=== PATIENT | male | born 1970 | race Caucasian/White ===

== ENCOUNTER → 2017-01-06 | Outpatient (CLI) | payer BC | LOC: M LAB 18:36 | PROVIDERS: ATTEND Internal Medicine Gastroenterology | DX: R94.5 Abnormal results of liver function studies (principal); R53.83 Other fatigue ==

== ENCOUNTER → 2017-03-08 | Outpatient (REF) | payer BC | LOC: M LAB REF 12:46 | PROVIDERS: ATTEND Physician Assistant Medical | DX: J02.9 Acute pharyngitis, unspecified (principal) ==

== ENCOUNTER → 2017-03-31 | Outpatient (REF) | payer BC | LOC: M LAB REF 12:38 | PROVIDERS: ATTEND Nurse Practitioner Family | DX: R42 Dizziness and giddiness (principal) ==

== ENCOUNTER → 2017-04-22 | Outpatient (REF) | payer BC ==
[2017-04-25 00:06] LABS: Lyme Disease IgG/IgM Antibodie <0.91 ISR (0.00-0.90); Lyme Disease IgM Ab Quantitati <0.80 index (0.00-0.79)
== END ==
LOC: M LAB REF 17:14
PROVIDERS: ATTEND Nurse Practitioner Family
DX: R42 Dizziness and giddiness (principal)

== ENCOUNTER → 2017-04-29 | Outpatient (REF) | payer BC | LOC: M LAB REF 16:24 | PROVIDERS: ATTEND Family Medicine | DX: R74.8 Abnormal levels of other serum enzymes (principal) ==

== ENCOUNTER → 2017-08-20 | Outpatient (REF) | payer BC ==
[2017-08-20 14:26] LABS: VITAMIN B12 LEVEL 504 PG/ML (247-911)
[2017-08-20 14:27] LABS: FOLATE 18.5 NG/ML (>5.4)
[2017-08-24 00:06] LABS: Lyme Disease IgG/IgM Antibodie <0.91 ISR (0.00-0.90); Lyme Disease IgM Ab Quantitati <0.80 index (0.00-0.79); VITAMIN E LEVEL 15.1 mg/L (5.3-17.5)
== END ==
LOC: M LABNEURO 09:14
PROVIDERS: ATTEND Psychiatry & Neurology Neurology
DX: R42 Dizziness and giddiness (principal)

== ENCOUNTER → 2017-10-23 | Outpatient (CLI) | payer BC | LOC: M LAB 08:20 | PROVIDERS: ATTEND Family Medicine | DX: R42 Dizziness and giddiness (principal) ==

== ENCOUNTER → 2017-10-23 | Outpatient (CLI) | payer BC | LOC: M LAB 19:47 | PROVIDERS: ATTEND Family Medicine | DX: R42 Dizziness and giddiness (principal) ==

== ENCOUNTER → 2017-11-12 | Outpatient (REF) | payer BC | LOC: M LABNEURO 16:52 | PROVIDERS: ATTEND Psychiatry & Neurology Neurology | DX: R53.83 Other fatigue (principal) ==

== ENCOUNTER → 2018-01-15 | Outpatient (REF) | payer BC ==
[2018-01-15 13:07] LABS: HEMATOCRIT 48.8 % (42.0-52.0)
[2018-01-15 14:04] LABS: PROSTATIC SPECIFIC AG MONITOR 0.31 NG/ML (< 4.0)
[2018-01-15 14:21] LABS: TESTOSTERONE 412 NG/DL (241-827)
== END ==
LOC: M LABNEURO 10:15
DX: E29.1 Testicular hypofunction (principal)
CPT/HCPCS: 84403

== ENCOUNTER → 2018-01-19 | Outpatient (REF) | payer BC ==
[2018-01-19 18:01] LABS: TESTOSTERONE 881 NG/DL (241-827)
== END ==
LOC: M LABNEURO 14:25
DX: E29.1 Testicular hypofunction (principal)

== ENCOUNTER → 2018-01-27 | Outpatient (CLI) | payer BC | LOC: M SLEEP 19:48 | DX: R53.83 Other fatigue (principal); G47.10 Hypersomnia, unspecified | CPT/HCPCS: 95810 ==

== ENCOUNTER → 2018-06-12 | Outpatient (REF) | payer BC ==
[2018-06-12 14:44] LABS: HEMATOCRIT 48.6 % (42.0-52.0)
[2018-06-12 15:18] LABS: PSA SCREENING 0.35 NG/ML (< 4.0)
[2018-06-12 15:22] LABS: TESTOSTERONE 606 NG/DL (241-827)
== END ==
LOC: M LABDRAW1 12:40
DX: E29.1 Testicular hypofunction (principal)
CPT/HCPCS: 84403

== ENCOUNTER → 2018-06-17 | Outpatient (REF) | payer BC ==
[2018-06-17 19:56] LABS: TESTOSTERONE 604 NG/DL (241-827)
== END ==
LOC: M LABNEURO 13:55
DX: E29.1 Testicular hypofunction (principal)

== ENCOUNTER 2019-01-31 12:34 | Emergency (ER) | payer BC ==
[~2019-01-31] VITALS: Ht 167.6 cm; Wt 81.8 kg
[2019-01-31] MEDS ORDERED: PAXI20TA29 PO (12:50)
[2019-01-31] MEDS ORDERED: DRIS50003 PO (12:50)
[2019-01-31] MEDS ORDERED: RITA10TA PO (12:50)
[2019-01-31] MEDS ORDERED: [UNRECOGNIZED DRUG - CODE] XX (12:50)
[2019-01-31] MEDS ORDERED: TEST200I14 IM (12:50)
[2019-01-31] MEDS ORDERED: GI COCKTAIL 50ML BTL(HYOSCYAMINE/MAALOX/LIDOCAINE VISCOUS)(1:3:1) PO ONE (13:15)
--- NOTE | 2019-01-31 13:19 | REP ---
Clinical: chest pain. Comparison: none. Findings: The mediastinum and cardiac silhouette are stable and within normal limits for portable technique. The lung sky are clear without acute consolidation, effusion, or pneumothorax. Skeletal structures are intact. Impression: No acute cardiopulmonary process appreciated. Electronically Signed by Rashard Luciano MD 01/31/2019 01:10 P
[2019-01-31 13:23] LABS: BASO # 0.1 10^3/uL (0.0-0.2); BASO % 0.8 % (0.0-1.0); EOS # 0.2 10^3/uL (0.0-0.50); EOS % 2.5 % (0.0-3.0); HEMATOCRIT 48.3 % (42.0-52.0); HEMOGLOBIN 16.6 g/dl (13.5-17.5); LYMPH # 1.4 10^3/uL (1.5-4.5); LYMPH % 22.7 % (24.0-44.0); MEAN CORPUSCULAR HEMOGLOBIN 29.8 pg (27.0-33.0); MEAN CORPUSCULAR HGB CONC 34.4 g/dl (32.0-36.5); MEAN CORPUSCULAR VOLUME 86.7 fl (80.0-96.0); MONO # 0.5 10^3/uL (0.0-0.8); MONO % 7.7 % (0.0-5.0); NEUTROPHILS # 4.2 10^3/uL (1.8-7.7); NEUTROPHILS % 66.1 % (36.0-66.0); PLATELET COUNT, AUTOMATED 245 10^3/uL (150-450); RED BLOOD COUNT 5.57 10^6/uL (4.30-6.10); WHITE BLOOD COUNT 6.4 10^3/uL (4.0-10.0)
[2019-01-31 13:38] LABS: INR 0.99; PROTHROMBIN TIME 13.2 SECONDS (12.1-14.4)
[2019-01-31 13:52] LABS: ALBUMIN 3.9 GM/DL (3.2-5.2); ALT/SGPT 40 U/L (12-78); BILIRUBIN,DIRECT 0.1 MG/DL (0.0-0.2); BILIRUBIN,TOTAL 0.5 MG/DL (0.2-1.0); BLOOD UREA NITROGEN 14 MG/DL (7-18); CALCIUM LEVEL 8.8 MG/DL (8.5-10.1); CARBON DIOXIDE LEVEL 28 MEQ/L (21-32); CHLORIDE LEVEL 105 MEQ/L (98-107); CPK CREATINE PHOSPHOKINASE 234 U/L (39-308); CREATININE FOR GFR 1.11 MG/DL (0.70-1.30); FREE T4 0.71 NG/DL (0.76-1.46); GLOMERULAR FILTRATION RATE > 60.0 (>60); GLUCOSE, FASTING 86 MG/DL (70-100); LIPASE 132 U/L (73-393); MB/CK RELATIVE INDEX 0.73 (< OR =4); POTASSIUM SERUM 3.7 MEQ/L (3.5-5.1); SODIUM LEVEL 141 MEQ/L (136-145); TOTAL PROTEIN 6.8 GM/DL (6.4-8.2); TROPONIN I < 0.02 NG/ML (< 0.10)
[2019-01-31 14:15] LABS: NT-PRO BNP 15 PG/ML (<125)
[2019-01-31] MEDS ORDERED: ISOVUE-370 76% 100ML VIAL (Q9967) As Ordered ONE (14:54)
--- NOTE | 2019-01-31 15:23 | REP ---
Clinical: Acute chest pain. Technique: Axial contrast enhanced images from the thoracic inlet to the upper abdomen using 100 ml Isovue 370 intravenous contrast material with coronal and sagittal re-formations. Findings: Satisfactory enhancement of the pulmonary vasculature is achieved and no filling defects are identified to suggest pulmonary embolus. Thoracic aorta is normal caliber without aneurysm or dissection. Heart and pericardium are normal. Bilateral lung sky are well aerated and clear without acute pulmonary parenchymal consolidation or atelectasis. No nodule or mass lesion. No pleural effusion/reaction. No pneumothorax. No adenopathy. Impression: No evidence for pulmonary embolus. No acute pleuroparenchymal or mediastinal process. Electronically Signed by Rashard Luciano MD 01/31/2019 03:15 P
[2019-01-31] MEDS ORDERED: PRIL20TA2 PO (15:43)
[2019-01-31] MEDS ORDERED: SUCR1TA PO (15:43)
[2019-01-31 15:45] VITALS: BP 120/72
[2019-01-31] MEDS ORDERED: KETOROLAC 30 MG/ML VIAL (J1885) IV ONE (15:45)
--- NOTE | 2019-01-31 20:07 | ECGEPIP ---
Stationary ECG Study [facility] - ED Test Date: 2019-01-31 Pat Name: JODIE LANGFORD Department: Room: - Gender: M Appointment Clerk: CT : 1970 Requested By: CORWIN Rogers Order Number: [id number] Reading MD: Darlene Rosario Measurements Intervals Freedom Rate: 84 P: 56 WY: 159 QRS: 11 QRSD: 91 T: 0 QT: 307 QTc: 365 Interpretive Statements SINUS RHYTHM NO PRIOR FOR COMPARISON Electronically Signed On 01-31-2019 20:07:18 EST by Darlene Rosario
== END 2019-01-31 16:01 | disposition home or self-care (01) ==
LOC: M ED 12:34
DX: R07.89 Other chest pain (principal); F33.9 Major depressive disorder, recurrent, unspecified; E29.1 Testicular hypofunction; G47.33 Obstructive sleep apnea (adult) (pediatric); Q60.0 Renal agenesis, unilateral; Z79.899 Other long term (current) drug therapy
CPT/HCPCS: 36415; 71045; 71275; 80048; 80076; 82550; 82553; 83690; 83880; 84439; 84443; 84484; 85025; 85610; 93005; 93041; 94760; 99285; Q9967

== ENCOUNTER 2020-10-23 20:00 | Outpatient (CLI) | payer BC ==
[~2020-10-23 20:00] MED LIST: DRIS50003 PO; PAXI20TA29 PO; PRIL20TA2 PO; RITA10TA PO; SUCR1TA PO; TEST200I14 IM; [UNRECOGNIZED DRUG - CODE] XX
== END 2020-10-24 15:00 ==
LOC: M SLEEP 20:00
PROVIDERS: ATTEND Psychiatry & Neurology Neurology
DX: R40.0 Somnolence (principal)

== ENCOUNTER → 2020-11-05 | Outpatient (CLI) | payer SELFPAY | LOC: M LABSMTC 09:02 | PROVIDERS: ATTEND Pediatrics | DX: Z11.59 Encounter for screening for other viral diseases (principal) ==

== ENCOUNTER → 2021-03-23 | Outpatient (REF) | payer BC | LOC: M LAB REF 16:22 | PROVIDERS: ATTEND Family Medicine | DX: E29.1 Testicular hypofunction (principal); R74.8 Abnormal levels of other serum enzymes; K76.0 Fatty (change of) liver, not elsewhere classified ==

== ENCOUNTER 2021-10-20 12:25 | Emergency (ER) | payer BC ==
[~2021-10-20] VITALS: Ht 167.6 cm; Wt 87.5 kg
--- OUTSIDE RECORDS SUMMARY | 2021-10-20 12:32 | CCD | Continuity of Care Document ---
Author Author Ángel ENGLISH M.D. Organization Unknown Address [address] [address] Phone [phone] Care Team Providers Care Delivery Associate Name Role Phone Liam English MD AUTM [phone] Problems Active Problems Provider Date Essential hypertension Garcia Malone D.O. Onset: Hyperlipidemia Garcia Malone D.O. Onset: 2011 Social History Type Date Description Comments Sex Unknown ETOH Use Occasionally consumes beer Tobacco Use Start: Unknown Patient has never smoked Allergies, Adverse Reactions, Alerts Description No Known Drug Allergies Medications Active Medications SIG Qnty Indications Ordering Provide r Date Ketoconazole 2% Cream apply to effected area topically twice a day (Chest) 30gm Liam carrera M.D. 03/26/20[address] 1 by mouth every day Liam English M.D. 08/31/2020 HM [place]-3-6-9 Fatty Acids Capsul es daily Liam English M.D. 08/31/2020 Drisdol 1.25mg (64467 Ut) Capsules 1 tab weekly and extra dose every other week 18caps Liam English M.D. 08/14/2020 Apap Liam English M.D. 01/01 Multivitamin Adult Tablets 1 by mouth every day Liam English M.D. 07/13/2019 Clonazepam 0.5mg Tablets 1 b. i.d.. Unknown Testosterone Cypionate 100mg/ml So lution 1/2 ml b.i.d Unknown Paxil 20mg Tablets 1 by mo ut every day Unknown Mirtazapine 7.5mg Tablets take one tablet by mouth at bedtime Unknown Propranolol HCL 10mg Tablets 1 by augustine b.i.d. Unknown Immunizations CPT Code Status Date Vaccine Lot # U-Flu Given 08/20/2018 Influenza,Unspecified Q2037 Given 10/28/2016 Fluvirin Virus Vaccine [id number] 01 Q2037 Given 10/12/2015 Fluvirin Virus Vaccine [id number] 01 Vital Signs Date Vital Result Comment 07/31/2021 2:33pm BP Systolic 122 mmHg BP Diastolic 80 mmHg Heart Rate 64 /min Height 66 inches 5'6" Weight 190.00 lb BMI (Body Mass Index) 30.7 kg/m2 03/26/2021 2:15pm BP Systolic 120 mmHg BP Diastolic 70 mmHg Heart Rate 68 /min Height 66 inches 5'6" Weight 195.00 lb BMI (Body Mass Index) 31.5 kg/m2 Results Test Acquired Date Facility Test Result H/L Range Note Laboratory test finding 03/23/2021 [facility] [address] [place] [address] [phone] Testosterone 660 ng/dL Normal 241-827 1 Ammonia 20 uMOL/L Normal <32 Complete Blood Count 03/23/2021 [facility] Mail Caller: [place] [address] [phone] WBC 6.7 x10*3/UL 4.1 - 10.9 RBC 6.11 x10*6/UL 4.20 - 6.30 Hemoglobin 17.5 g/dL 12.0 - 18.0 Hematocrit 52.0 % High 37.0 - 51.0 MCV 85.1 fL 80.0 - 97.0 MCH 28.7 pg 26.0 - 32.0 MCHC 33.7 g/dL 31.0 - 38.0 RDW 13.1 % 11.6 - 13.7 PLT 289 x10*3/UL 140 - 440 MPV 7.4 FL Low 7.8 - 11.0 Lymph % 21.8 % 10.0 - 58.5 Mid % 6.1 % 1.7 - 9.3 Neut % 72.1 % 37.0 - 92.0 Lymph # 1.4 x10*3/UL 0.6 - 4.1 Mid # 0.5 x10*3/UL 0.1 - 0.6 Neut # 4.8 x10*3/UL 2.0 - 7.8 Comprehensive Chem Profile 03/23/2021 [facility] Mail Caller: Dr Damien [place] [id number] [phone] Glucose 100 mg/dL High 74 - 99 2 BUN 12 mg/dL 7 - 18 Creatinine 1.2 mg/dL 0.6 - 1.3 Sodium 138 mEq/L 136 - 145 Potassium 4.7 mEq/L 3.5 - 5.1 Chloride 100 mEq/L 98 - 107 Carbon Dioxide 31 mEq/L 21 - 32 Calcium 9.1 mg/dL 8.5 - 10.1 Alk. Phosphatase 63 mg/dL 46 - 116 Total Bilirubin 0.5 mg/dL 0.2 - 1.0 Ast (Sgot) 24 U/L 15 - 37 Alt (SGPT) 76 U/L 12 - 78 Albumin 4.4 g/dL 3.4 - 5.0 Total Protein 7.3 g/dL 6.4 - 8.2 A/G Ratio 1.52 CALC 1.00 - 1.90 GFR >= 60 mL/min >60 GFR >= 60 mL/min >60 3 Lipid Profile 03/23/2021 [facility] Mail Caller: [place] [address] [phone] Cholesterol 195 mg/dL 131 - 200 Triglycerides 302 mg/dL High 30 - 150 HDL Cholesterol 32 mg/dL Low 35 - 60 LDL (Calculated) 103 CALC 50 - 159 Laboratory test finding 03/23/2021 [facility] Mail Caller: [place] [address] [phone] Thyroid Stimulating Hormone 2.39 uIU/mL 0.3 6 - 3.74 Laboratory test finding 03/23/2021 [facility] Mail Caller: [place] [address] [phone] T4 Free 0.77 ng/dL 0.76 - 1.46 1 NORMAL RANGES ARE FOR ADULT FEMALES (OVER 15 YRS) AND MALES (OVER 19 YRS). FOR PEDIATRIC RANGES PLE ASE CONSULT LITERATURE. 2 100-125 mg/dL PRE-DIABET ES/FASTING >126 mg/dL DIABETES/FASTING 3 CHRONIC KIDNEY DISEASE STAGI NG PER NKF STAGE I & II GFR >= 60 NORMAL TO MILDLY DECREASED STAGE III GFR 30-59 MODERATELY DECREASED STAGE IV GFR 15-29 SEVERELY DECREASED STAGE V GFR <15 VERY LITTLE GFR LEFT ESRD GFR <15 ON BREAKER UP Procedures Date Code Description Status 07/30/2021 18103644 Colonoscopy Completed 03/26/2021 44623 Office/Outpatient Established Mo d MDM 30-39 Min Completed 03/26/2021 72076 EKG/Interpretation & Report Comp leted Medical Devices Description No Information Available Encounters Type Date Location Provider Dx Diagnosis Office Visit 03/26/2021 2:00p [facility] Liam English M.D. E78.5 Hyperlipidemia, unspecified R53.83 Other fatigue E07.9 Disorder of thyroid, unspeci fied F41.9 Anxiety disorder, unspecifie d Q60.0 Renal agenesis, unilateral R21 Rash and other nonspecific s kin eruption E55.9 Vitamin D deficiency, unspec ified G47.33 Obstructive sleep apnea (risa lt) (pediatric) R07.89 Other chest pain Assessments Date Code Description Provider 03/26/2021 E78.5 Hyperlipidemia, unspecified Lupillo English M.D. 03/26/2021 R53.83 Other fatigue Liam English M.D. 03/26/2021 E07.9 Disorder of thyroid, unspecified Liam English M.D. 03/26/2021 F41.9 Anxiety disorder, unspecified Abhijit English M.D. 03/26/2021 Q60.0 Renal agenesis, unilateral Liam English M.D. 03/26/2021 R21 Rash and other nonspecific skin eruption Liam English M.D. 03/26/2021 E55.9 Vitamin D deficiency, unspecifie d Liam English M.D. 03/26/2021 G47.33 Obstructive sleep apnea (adult) (pediatric) Liam English M.D. 03/26/2021 R07.89 Other chest pain Liam English M.D. 03/23/2021 E29.1 Testicular hypofunction Liam English M.D. 03/23/2021 E29.1 Testicular hypofunction Lab [place] 03/23/2021 R74.8 Abnormal levels of other serum e abbe English M.D. 03/23/2021 R74.8 Abnormal levels of other serum e daniloymjames Lab Schedule 03/23/2021 K76.0 Fatty (change of) liver, not els ewhere classified Liam English M.D. 03/23/2021 K76.0 Fatty (change of) liver, not els ewhere classified Lab Schedule 03/23/2021 E78.5 Hyperlipidemia, unspecified Lupillo English M.D. 03/23/2021 E78.5 Hyperlipidemia, unspecified Lab Schedule 03/23/2021 E07.9 Disorder of thyroid, unspecified Liam English M.D. 03/23/2021 E07.9 Disorder of thyroid, unspecified Lab Schedule Plan of Treatment Future Appointment(s):* 12/03/2021 2:30 pm - Liam English M.D. at [facility] Functional Status Description No Information Available Mental Status Description No Information Available Referrals Refer to Dr Reason for Referral Status Appt Date Maday Wahsburn MD BIOMEDICAL EQUIPMENT SUPPORT SPECIALIST CONSULT FOR SCREENING COLONOSCOPY Scheduled 06/07/[address] [place] [address] [place] [address] [phone]
--- OUTSIDE RECORDS SUMMARY | 2021-10-20 12:32 | CCD | Continuity of Care Document ---
Author Author Ángel ENGLISH M.D. Organization Unknown Address [address] [address] Phone [phone] Care Team Providers Care Sandwich Maker Name Role Phone Liam English MD AUTM [phone] Problems Active Problems Provider Date Essential hypertension [...] every day Liam English M.D. 08/31/2020 HM [place]-3-6-9 Fatty Acids Capsul es daily Liam English M.D. 08/31/2020 Drisdol 1.25mg (74654 Ut) Capsules 1 tab weekly and extra [...] Influenza,Unspecified Q2037 Given 10/28/2016 Fluvirin Virus Vaccine 58467 01 Q2037 Given 10/12/2015 Fluvirin Virus Vaccine 13128 01 Vital Signs Date Vital Result Comment [...] H/L Range Note Laboratory test finding 03/23/2021 [facility] [address] [place] [address] [phone] Testosterone 660 ng/dL Normal 241-827 1 Ammonia 20 uMOL/L Normal <32 Complete Blood Count 03/23/2021 [facility] Ui Engineer: [place] [address] [phone] WBC 6.7 x10*3/UL 4.1 - 10.9 RBC [...] 2.0 - 7.8 Comprehensive Chem Profile 03/23/2021 [facility] Ui Engineer: Dr Damien Allen [place] [address] [phone] Glucose 100 mg/dL High 74 - 99 [...] 60 mL/min >60 3 Lipid Profile 03/23/2021 [facility] Ui Engineer: [place] [address] [phone] Cholesterol 195 mg/dL 131 - 200 Triglycerides 302 mg/dL High 30 - 150 HDL Cholesterol 32 mg/dL Low 35 - 60 LDL (Calculated) 103 CALC 50 - 159 Laboratory test finding 03/23/2021 [facility] Ui Engineer: [place] [address] [phone] Thyroid Stimulating Hormone 2.39 uIU/mL 0.3 6 - 3.74 Laboratory test finding 03/23/2021 [facility] Ui Engineer: [place] [address] [phone] T4 Free 0.77 ng/dL 0.76 - 1.46 [...] LITTLE GFR LEFT ESRD GFR <15 ON MANDATE [employer]CH[employer]ER Procedures Date Code Description Status 07/30/2021 [id number] Colonoscopy Completed 03/26/2021 98467 Office/Outpatient Established Mo d MDM 30-39 Min Completed 03/26/2021 77893 EKG/Interpretation & Report Comp leted Medical Devices Description No Information Available Encounters Type Date Location Provider Dx Diagnosis Office Visit 03/26/2021 2:00p [facility] Liam English M.D. E78.5 Hyperlipidemia, unspecified R53.83 Other fatigue E07.9 Disorder of thyroid, unspeci fied F41.9 Anxiety disorder, unspecifie d Q60.0 Renal agenesis, unilateral R21 Rash and other nonspecific s kin eruption E55.9 Vitamin D deficiency, unspec ified G47.33 Obstructive sleep apnea (risa lt) (pediatric) R07.89 Other chest pain Assessments Date Code Description Provider 07/31/2021 R53.83 Other fatigue Liam English M.D. 07/31/2021 E78.5 Hyperlipidemia, unspecified Lupillo English M.D. 07/31/2021 E07.9 Disorder of thyroid, unspecified Liam English M.D. 07/31/2021 F41.9 Anxiety disorder, unspecified Abhijit English M.D. 07/31/2021 Q60.0 Renal agenesis, unilateral Liam English M.D. 07/31/2021 R21 Rash and other nonspecific skin eruption Liam English M.D. 07/31/2021 E55.9 Vitamin D deficiency, unspecifie d Liam English M.D. 07/31/2021 G47.33 Obstructive sleep apnea (adult) (pediatric) Liam English M.D. 07/31/2021 K75.81 Nonalcoholic steatohepatitis ([place]) Liam English M.D. 07/31/2021 E29.1 Testicular hypofunction Liam English M.D. 07/31/2021 R51.9 Headache, unspecified Liam davila M.D. 03/26/2021 E78.5 Hyperlipidemia, unspecified Lupillo English M.D. [...] R74.8 Abnormal levels of other serum e daniloymes Liam English M.D. 03/23/2021 R74.8 Abnormal levels of other serum e daniloymes Lab Schedule 03/23/2021 K76.0 Fatty (change of) [...] 2:30 pm - [facility] at [facility] 07/31/2021 - Liam English M.D.* R53.83 Other fatigue * E78.5 Hyperlipidemia, unspecified * E07.9 Disorder of thyroid, unspecified * F41.9 Anxiety disorder, unspecified * Q60.0 Renal agenesis, unilateral * R21 Rash and other nonspecific skin eruption * E55.9 Vitamin D deficiency, unspecified * G47.33 Obstructive sleep apnea (adult) (pediatric) * K75.81 Nonalcoholic steatohepatitis ([place]) * E29.1 Testicular hypofunction * R51.9 Headache, unspecified * * Comments:* 4 months with labs TBD (extensive labs done via Dr Thakur recently, pt will print out). Functional Status Description No Information Available Mental Status Description No Information Available Referrals Refer to Reason for Referral Status Appt Date Maday Washburn MD SENIOR UNIX ADMINISTRATOR CONSULT FOR SCREENING COLONOSCOPY Scheduled 06/07/[address] [place] [address] [place] [address] [phone]
--- OUTSIDE RECORDS SUMMARY | 2021-10-20 12:32 | CCD | Continuity of Care Document ---
Author Author Ángel ALSTON M.D. Organization Unknown Address [address] [place] [address] Phone [phone] Care Team Providers Care Beef Grinder Name Role Phone Liam Caraballo M.D. AUTM [phone] Problems Active Problems Provider Date Dizziness and giddiness Hui Alston M.D. Onset: 7 Visual disturbance Hui Alston M.D. Onset: 08/20/2017 Chronic tension-type headache Hui Alston M.D. Onset: Bilateral carpal tunnel syndrome Hui Alston M.D. Onset: 08/20/2017 Idiopathic hypersomnia without long sleep time Ron King Onset: 11/12/2017 Narcolepsy Hui Alston M.D. Onset: 11/12/2017 Obstructive sleep apnea syndrome Hui Alston M.D. Onset: 05/06/2018 Hypersomnia Hui Alston M.D. Onset: 05/06/2018 Neck pain Hui Alston M.D. Onset: 10/15/2019 Spondylolysis of cervical spine Hui Alston M.D. Onset: 12/15/2018 Chronic intractable migraine without aura Hui Alston M.D. Onset: 05/18/2020 Migraine without aura, not refractory Hui Alston M.D. On set: 08/01/2020 Malaise and fatigue Hui Alston M.D. Onset: 11/02/2020 Social History Type Date Description Comments Sex Unknown Tobacco Use Start: Unknown Patient has never smoked Allergies and adverse reactions Description No Known Drug Allergies Medications Active Medications SIG Qnty Indications Ordering Provide r Date Botox 200Unit Solution Rec inject 155 units intramuscular into head neck and shoulders for migraines every 3 months wasting 45 units 1units G43.719 Hui Alston M.D. 09/14/2021 Propranolol HCL 20mg Tablets half a tab by mouth twice a day for 1 week, then 1 by mouth bid. 180favian Alston M.D. 07/26/2021 History Medications No Active Medications Unknown - 07/26/2021 Methylphenidate HCL 10mg Tablets 2 po qam for 1 week, then 1 po qam for a week, then stop. 21favian Alston M.D. 05/15/2021 - 07/26/2021 Ajovy 225mg/1.5ML Soln Prefill Syr byron inject 225mg/1.5ml sc once a month. 1.500ml Hui Alston M.D. 05/15/2021 - 07/26/2021 Immunizations Description No Information Available Vital Signs Date Vital Result Comment 08/20/2017 9:00am BP Systolic 120 mmHg BP Diastolic 75 mmHg Heart Rate 74 /min Respiratory Rate 16 /min Height 66 inches 5'6" Weight 167.00 lb BMI (Body Mass Index) 27.0 kg/m2 [place] Body Weight 142 lb Results Description No Information Available Procedures Date Code Description Status 10/03/2021 27338 [place] Muscles Inn ervated By Facial, Trigeminal, Cerv And Acces Completed 07/26/2021 16501 Office/Outpatient Established Hi gh MDM 40-54 Min Completed 05/15/2021 46496 Office/Outpatient Established Mo d MDM 30-39 Min Completed Medical Devices Description No Information Available Encounters Type Date Location Provider Dx Diagnosis Office Visit 07/26/2021 2:15p [place] Dizziness and giddiness H53.8 Other visual disturbances G47.33 Obstructive sleep apnea (risa lt) (pediatric) G56.03 Carpal tunnel syndrome, bila teral upper limbs M54.2 Cervicalgia R53.83 Other fatigue G47.14 Hypersomnia due to medical c ondition M43.02 Spondylolysis, cervical nelida on G44.221 Chronic tension-type headach e, intractable G43.719 Chronic migraine w/o aura, i ntractable, w/o stat migr Office Visit 05/15/2021 2:30p Main office - [place] Мария King R42 Dizziness and giddiness H53.8 Other visual disturbances G47.33 Obstructive sleep apnea (risa lt) (pediatric) G56.03 Carpal tunnel syndrome, bila teral upper limbs M54.2 Cervicalgia R53.83 Other fatigue G47.14 Hypersomnia due to medical c ondition M43.02 Spondylolysis, cervical nelida on G43.009 Migraine w/o aura, not intra ctable, w/o status migrainosus G44.229 Chronic tension-type headach e, not intractable Assessments Date Code Description Provider 10/03/2021 G43.719 Chronic migraine wit hout aura, intractable, without status migrainosus Hui Alston M.D. 07/26/2021 R42 Dizziness and giddiness Hui amaya M.D. 07/26/2021 H53.8 Other visual disturbances Hui Alston M.D. 07/26/2021 G47.33 Obstructive sleep apnea (adult) (pediatric) Hui Alston M.D. 07/26/2021 G56.03 Carpal tunnel syndrome, bilatera l upper limbs Hui Alston M.D. 07/26/2021 M54.2 Cervicalgia Hui Alston M.D. 07/26/2021 R53.83 Other fatigue Hui Alston M.D. 07/26/2021 G47.14 Hypersomnia due to medical condi tion Hui Alston M.D. 07/26/2021 M43.02 Spondylolysis, cervical region M olive Alston M.D. 07/26/2021 G44.221 Chronic tension-type headache, i ntractable Hui Alston M.D. 07/26/2021 G43.719 Chronic migraine wit hout aura, intractable, without status migrainosus Hui Alston M.D. 05/15/2021 R42 Dizziness and giddiness Hui amaya M.D. 05/15/2021 H53.8 Other visual disturbances Hui Alston M.D. 05/15/2021 G47.33 Obstructive sleep apnea (adult) (pediatric) Hui Alston M.D. 05/15/2021 G56.03 Carpal tunnel syndrome, bilatera l upper limbs Hui Alston M.D. 05/15/2021 M54.2 Cervicalgia Hui Alston M.D. 05/15/2021 R53.83 Other fatigue Hui Alston M.D. 05/15/2021 G47.14 Hypersomnia due to medical condi tion Hui Alston M.D. 05/15/2021 M43.02 Spondylolysis, cervical region M olive Alston M.D. 05/15/2021 G43.009 Migraine without aur a, not intractable, without status migrainosus Hui Alston M.D. 05/15/2021 G44.229 Chronic tension-type headache, n ot intractable Hui Alston M.D. Plan of Treatment Future Appointment(s):* 10/30/2021 2:15 pm - Hui Alston M.D. at Main office - [place] Functional Status Description No Information Available Mental Status Description No Information Available Referrals Description No Information Available
--- OUTSIDE RECORDS SUMMARY | 2021-10-20 12:32 | CCD | Continuity of Care Document ---
Author Author Ángel ALSTON M.D. Organization Unknown Address [address] [place] [address] Phone [phone] Care Team Providers Care Economist Research Assistant Name Role Phone Liam Caraballo M.D. AUTM [phone] Problems Active Problems Provider Date Dizziness and [...] week, then 1 by mouth bid. 180favian lAston M.D. 07/26/2021 History Medications No Active Medications [...] lb BMI (Body Mass Index) 27.0 kg/m2 [place] Body Weight 142 lb Results Description No Information Available Procedures Date Code Description Status 10/03/2021 14486 [place] Muscles Inn ervated By Facial, Trigeminal, Cerv And Acces Completed 07/26/2021 12668 Office/Outpatient Established Hi gh MDM 40-54 Min Completed 05/15/2021 17592 Office/Outpatient Established Mo d MDM 30-39 Min Completed Medical Devices Description No Information Available Encounters Type Date Location Provider Dx Diagnosis Office Visit 07/26/2021 2:[place] Dizziness and giddiness H53.8 Other [...] Office Visit 05/15/2021 2:30p [place] [facility] - [place] Мария King R42 Dizziness and giddiness H53.8 [...] Hui Alston M.D. at Main office - [place] Functional Status Description No Information Available Mental Status Description No Information Available Referrals Description No Information Available
--- OUTSIDE RECORDS SUMMARY | 2021-10-20 12:32 | CCD | Continuity of Care Document ---
Author Author Ángel ALSTON M.D. Organization Unknown Address [address] [place] [address] Phone [phone] Care Team Providers Care Cash Reconciliation Specialist Name Role Phone Liam Caraballo M.D. AUTM [phone] Problems Active Problems Provider Date Dizziness and [...] SIG Qnty Indications Ordering Provide r Date Propranolol HCL 20mg Tablets half a tab by mouth twice a day for 1 week, then 1 by mouth bid. 180tabs Hui Ali, M.D. 07/26/2021 History Medications No Active Medications Unknown - 07/26/2021 Methylphenidate HCL 10mg Tablets 2 po qam for 1 week, then 1 po qam for a week, then stop. 21tabs Hui Alston M.D. 05/15/2021 - 07/26/2021 Ajovy 225mg/1.5ML Soln Prefill Syr byron inject 225mg/1.5ml sc once a month. 1.500ml Hui Alston M.D. 05/15/2021 - 07/26/2021 Propranolol HCL 10mg Tablets 1 by mouth twice a day 60tadeanna Alston M.D. 03/07/2021 - Immunizations Description No Information Available Vital Signs Date Vital Result Comment 08/20/2017 9:00am BP Systolic 120 mmHg BP Diastolic 75 mmHg Heart Rate 74 /min Respiratory Rate 16 /min Height 66 inches 5'6" Weight 167.00 lb BMI (Body Mass Index) 27.0 kg/m2 [place] Body Weight 142 lb Results Description No Information Available Procedures Date Code Description Status 07/26/2021 34604 Office/Outpatient Established Hi gh MDM 40-54 Min Completed 05/15/2021 69332 Office/Outpatient Established Mo d MDM 30-39 Min Completed 02/01/2021 95841 Office/Outpatient Established Mo d MDM 30-39 Min Completed Medical Devices Description No Information Available Encounters Type Date Location Provider Dx Diagnosis Office Visit 07/26/2021 2:15p Main office - Мария Ling R42 Dizziness and giddiness H53.8 Other visual disturbances G47.33 Obstructive sleep apnea (risa lt) (pediatric) G56.03 Carpal tunnel syndrome, bila teral upper limbs M54.2 Cervicalgia R53.83 Other fatigue G47.14 Hypersomnia due to medical c ondition M43.02 Spondylolysis, cervical nelida on G44.221 Chronic tension-type headach e, intractable G43.719 Chronic migraine w/o aura, i ntractable, w/o stat migr Office Visit 05/15/2021 2:30p Main office - Мария Ling R42 Dizziness and giddiness H53.8 Other visual disturbances G47.33 Obstructive sleep apnea (risa lt) (pediatric) G56.03 Carpal tunnel syndrome, bila teral upper limbs M54.2 Cervicalgia R53.83 Other fatigue G47.14 Hypersomnia due to medical c ondition M43.02 Spondylolysis, cervical nelida on G43.009 Migraine w/o aura, not intra ctable, w/o status migrainosus G44.229 Chronic tension-type headach e, not intractable Office Visit 02/01/2021 1:45p Main office - [place] Мария King R42 Dizziness and giddiness H53.8 Other visual disturbances G47.33 Obstructive sleep apnea (risa lt) (pediatric) G56.03 Carpal tunnel syndrome, bila teral upper limbs M54.2 Cervicalgia R53.83 Other fatigue G47.14 Hypersomnia due to medical c ondition Assessments Date Code Description Provider 07/26/2021 R42 Dizziness and giddiness Hui amaya [...] headache, n ot intractable Hui Alston M.D. 02/01/2021 R42 Dizziness and giddiness Hui amaya M.D. 02/01/2021 H53.8 Other visual disturbances Hui Alston M.D. 02/01/2021 G47.33 Obstructive sleep apnea (adult) (pediatric) Hui Alston M.D. 02/01/2021 G56.03 Carpal tunnel syndrome, bilatera l upper limbs Hui Alston M.D. 02/01/2021 M54.2 Cervicalgia Hui Alston M.D. 02/01/2021 R53.83 Other fatigue Hui Alston M.D. 02/01/2021 G47.14 Hypersomnia due to medical condi clarence Alston M.D. Plan of Treatment Future Appointment(s):* 10/30/2021 2:15 pm - Hui Alston M.D. at Main office - [place] Functional Status Description No Information Available Mental Status Description No Information Available Referrals Refer to Reason for Referral Status Appt Date Created
--- OUTSIDE RECORDS SUMMARY | 2021-10-20 12:32 | CCD | Continuity of Care Document ---
Author Author Ángel ENGLISH M.D. Organization Unknown Address [address] [address] Phone [phone] Care Team Providers Care Monotype Operator Name Role Phone Liam English MD AUTM [phone] Problems Active Problems Provider Date Essential hypertension [...] every day Liam English M.D. 08/31/2020 HM [place]-3-6-9 Fatty Acids Capsul es daily Liam English M.D. 08/31/2020 Drisdol 1.25mg (76408 Ut) Capsules 1 tab weekly and extra [...] Influenza,Unspecified Q2037 Given 10/28/2016 Fluvirin Virus Vaccine 43643 01 Q2037 Given 10/12/2015 Fluvirin Virus Vaccine 71534 01 Vital Signs Date Vital Result Comment [...] H/L Range Note Laboratory test finding 03/23/2021 [facility] [address] [place] [address] [phone] Testosterone 660 ng/dL Normal 241-827 1 Ammonia 20 uMOL/L Normal <32 Complete Blood Count 03/23/2021 [facility] Welding Machine Operator Arc: [place] [address] [phone] WBC 6.7 x10*3/UL 4.1 - 10.9 RBC [...] 2.0 - 7.8 Comprehensive Chem Profile 03/23/2021 [facility] Welding Machine Operator Arc: Dr Damien Allen [place] [id number] [phone] Glucose 100 mg/dL High 74 - 99 [...] 60 mL/min >60 3 Lipid Profile 03/23/2021 [facility] Welding Machine Operator Arc: [place] [address] [phone] Cholesterol 195 mg/dL 131 - 200 Triglycerides 302 mg/dL High 30 - 150 HDL Cholesterol 32 mg/dL Low 35 - 60 LDL (Calculated) 103 CALC 50 - 159 Laboratory test finding 03/23/2021 [facility], if[facility]oma Welding Machine Operator Arc: [place] [address] [phone] Thyroid Stimulating Hormone 2.39 uIU/mL 0.3 6 - 3.74 Laboratory test finding 03/23/2021 [facility] ifeoma levy Welding Machine Operator Arc: [place] [address] [phone] T4 Free 0.77 ng/dL 0.76 - 1.46 [...] LITTLE GFR LEFT ESRD GFR <15 ON GLASS CUT OFF TENDER Procedures Date Code Description Status 07/30/2021 71458342 Colonoscopy Completed 03/26/2021 80186 Office/Outpatient Established Mo d MDM 30-39 Min Completed 03/26/2021 46888 EKG/Interpretation & Report Comp leted Medical Devices Description No Information Available Encounters Type Date Location Provider Dx Diagnosis Office Visit 03/26/2021 2:00p [facility] Liam English M.D. E78.5 Hyperlipidemia, [...] 2:30 pm - Liam English M.D. at [facility] Functional Status Description No Information Available Mental Status Description No Information Available Referrals Refer to Dr Reason for Referral Status Appt Date Maday Washburn MD CRACKING STILL OPERATOR CONSULT FOR SCREENING COLONOSCOPY Scheduled 06/07/[address] [place] [address] [place] [address] [phone]
--- OUTSIDE RECORDS SUMMARY | 2021-10-20 12:32 | CCD | Continuity of Care Document ---
Author Author Ángel ENGLISH M.D. Organization Unknown Address [address] [address] Phone [phone] Care Team Providers Care Materials Planning Analyst Name Role Phone Liam English MD AUTM [phone] Problems Active Problems Provider Date Essential hypertension [...] every day Liam English M.D. 08/31/2020 HM [place]-3-6-9 Fatty Acids Capsul es daily Liam English M.D. 08/31/2020 Drisdol 1.25mg (39836 Ut) Capsules 1 tab weekly and extra [...] Influenza,Unspecified Q2037 Given 10/28/2016 Fluvirin Virus Vaccine 90053 01 Q2037 Given 10/12/2015 Fluvirin Virus Vaccine 95039 01 Vital Signs Date Vital Result Comment [...] H/L Range Note Laboratory test finding 03/23/2021 [facility] [address] [place] [address] [phone] Testosterone 660 ng/dL Normal 241-827 1 Ammonia 20 uMOL/L Normal <32 Complete Blood Count 03/23/2021 [facility] Lead Quality Control Technician: [place] [address] [phone] WBC 6.7 x10*3/UL 4.1 - 10.9 RBC [...] 2.0 - 7.8 Comprehensive Chem Profile 03/23/2021 [facility] Lead Quality Control Technician: Dr Damien [place] [address] [phone] Glucose 100 mg/dL High 74 - 99 [...] 60 mL/min >60 3 Lipid Profile 03/23/2021 [facility] Lead Quality Control Technician: [place] [address] [phone] Cholesterol 195 mg/dL 131 - 200 Triglycerides 302 mg/dL High 30 - 150 HDL Cholesterol 32 mg/dL Low 35 - 60 LDL (Calculated) 103 CALC 50 - 159 Laboratory test finding 03/23/2021 [facility], [facility]oma Lead Quality Control Technician: [place] [address] [phone] Thyroid Stimulating Hormone 2.39 uIU/mL 0.3 6 - 3.74 Laboratory test finding 03/23/2021 [facility] Account Coordinator ifeoma levy Lead Quality Control Technician: [place] [address] [phone] T4 Free 0.77 ng/dL 0.76 - 1.46 [...] LITTLE GFR LEFT ESRD GFR <15 ON MOTION PICTURE CAMERA OPERATOR Procedures Date Code Description Status 07/31/2021 43815 Office/Outpatient Established Mo d MDM 30-39 Min Completed 07/30/2021 [id number] Colonoscopy Completed 03/26/2021 33546 Office/Outpatient Established Mo d MDM 30-39 Min Completed 03/26/2021 88622 EKG/Interpretation & Report Comp leted Medical Devices Description No Information Available Encounters Type Date Location Provider Dx Diagnosis Office Visit 07/31[facility]2021 [facility] R53.83 Other fatigue E78.5 Hyperlipidemia, unspecified E07.9 Disorder of thyroid, unspeci fied F41.9 Anxiety disorder, unspecifie d Q60.0 Renal agenesis, unilateral R21 Rash and other nonspecific s kin eruption E55.9 Vitamin D deficiency, unspec ified G47.33 Obstructive sleep apnea (risa lt) (pediatric) K75.81 Nonalcoholic steatohepatitis ([place]) E29.1 Testicular hypofunction R51.9 Headache, unspecified Office Visit 03/26/2021 2:00p [facility] E78.5 Hyperlipidemia, unspecified R53.83 Other [...] M.D. 07/31/2021 F41.9 Anxiety disorder, unspecified Abhijit Brooks Rufus English 07/31/2021 Q60.0 Renal agenesis, unilateral Liam FGeovanni English M.D. 07/31/2021 R21 Rash and other nonspecific skin eruption Liam English M.D. 07/31/2021 E55.9 Vitamin D deficiency, unspecifie d Liam English M.D. 07/31/2021 G47.33 Obstructive sleep apnea (adult) (pediatric) Liam English M.D. 07/31/2021 K75.81 Nonalcoholic steatohepatitis ([place]) Liam English M.D. 07/31/2021 E29.1 Testicular hypofunction Liam English M.D. 07/31/2021 R51.9 Headache, unspecified Liam davila M.D. 03/26/2021 E78.5 Hyperlipidemia, unspecified Abhijitjewell ulisses English M.D. 03/26/2021 R53.83 Other fatigue Liam English M.D. 03/26/2021 E07.9 Disorder of thyroid, unspecified Liam English M.D. 03/26/2021 F41.9 Anxiety disorder, unspecified Abhijit MarieGeovanni English M.D. 03/26/2021 Q60.0 Renal agenesis, unilateral [...] Abnormal levels of other serum e daniloymjames English M.D. 03/23/2021 R74.8 Abnormal levels of other serum e abbe Lab Schedule 03/23/2021 K76.0 Fatty (change of) [...] 2:30 pm - [facility] 07/31/2021 - Liam English [...] * R51.9 Headache, unspecified * * Comments:* 1. Other fatigue: He does have fatigue and is following up with Dr. Betts. He did not increase the dose of either Paxil or clonazepam, which may result in further fatigue. Continue current regimen and will follow up.2. Hyperlipidemia: TGs were high. He will watch his diet carefully. We will monitor.3. Disorder of thyroid: His TSH and FT4 were normal. We will continue to monitor.4. Anxiety disorder: Patient is following up with Dr. Betts. He appears to be doing generally well on present regimen 5. Renal agenesis: Stable creatinine. We will continue to monitor.6. Rash and other nonspecific skin eruption: He will use ketoconazole as directed if recurrence of symptoms.7. Vitamin D deficiency: Normal vitamin D level. Patient is well supplemented, will continue and monitor.8. Obstructive sleep apnea: Good results with the use of CPAP daily at night. Patient is following up with Dr. Alston at [facility] and will continue appropriate follow up.9. Nonalcoholic steatohepatitis ([place]): Generally stable. Sees Dr. Maday Washburn's office.10. Testicular hypofunction: Low testosterone level. Follows up with Dr. Thakur and will continue appropriate follow up.11. Headache: Generally stable. Continue current regimen. He is seeing Dr. Alston of [facility] and will continue appropriate follow up.Ongoing ca res: I am going to see him again in 4 months with labs TBD (extensive labs done via Dr Thakur recently, patient will print out). If he has new problems or issues sooner he will let us know. Functional Status Description No Information Available Mental Status Description No Information Available Referrals Refer to Reason for Referral Status Appt Date Maday Washburn MD MACHINE UMBRELLA TIPPER CONSULT FOR SCREENING COLONOSCOPY Scheduled 06/07/[address] [place] [id number] [phone]
--- OUTSIDE RECORDS SUMMARY | 2021-10-20 12:32 | CCD | Continuity of Care Document ---
Author Author Ángel ALSTON M.D. Organization Unknown Address [address] [place] [address] Phone [phone] Care Team Providers Care Financial Accountant Name Role Phone Liam Caraballo M.D. AUTM [phone] Problems Active Problems Provider Date Dizziness and [...] lb BMI (Body Mass Index) 27.0 kg/m2 [place] Body Weight 142 lb Results Description No Information Available Procedures Date Code Description Status 07/26/2021 43711 Office/Outpatient Established Hi gh MDM 40-54 Min Completed 05/15/2021 00850 Office/Outpatient Established Mo d MDM 30-39 Min Completed 02/01/2021 72763 Office/Outpatient Established Mo d MDM 30-39 Min [...] Office Visit 02/01/2021 1:45p Main office - [facility] Мария King R42 Dizziness and giddiness H53.8 [...] 02/01/2021 G47.14 Hypersomnia due to medical condi tion Hui Alston M.D. Plan of Treatment No Information Available Functional Status Description No Information Available Mental Status Description No Information Available Referrals Refer to Reason for Referral Status Appt Date Created
--- OUTSIDE RECORDS SUMMARY | 2021-10-20 12:32 | CCD | Continuity of Care Document ---
Author Author Ángel ALSTON M.D. Organization Unknown Address [address] [place] [address] Phone [phone] Care Team Providers Care Greaser And Oiler Name Role Phone Liam Caraballo M.D. AUTM [phone] Problems Active Problems Provider Date Dizziness and [...] lb BMI (Body Mass Index) 27.0 kg/m2 [place] Body Weight 142 lb Results Description No Information Available Procedures Date Code Description Status 10/03/2021 50180 [place] Muscles Inn ervated By Facial, Trigeminal, Cerv And Acces Completed 07/26/2021 83690 Office/Outpatient Established Hi gh MDM 40-54 Min Completed 05/15/2021 39478 Office/Outpatient Established Mo d MDM 30-39 Min Completed Medical Devices Description No Information Available Encounters Type Date Location Provider Dx Diagnosis Office Visit 07/26/2021 2:15p [facility] [place] R42 Dizziness and giddiness H53.8 Other [...] Office Visit 05/15/2021 2:30p Main office - [place] Мария King R42 Dizziness and giddiness H53.8 [...] 05/15/2021 G47.33 Obstructive sleep apnea (adult) (pediatric) Hiu Alston M.D. 05/15/2021 G56.03 Carpal tunnel syndrome, [...] Hui Alston M.D. at Main office - [place] Functional Status Description No Information Available Mental Status Description No Information Available Referrals Description No Information Available
--- OUTSIDE RECORDS SUMMARY | 2021-10-20 12:33 | CCD ---
Author Author [facility] Organization [facility] Address Unknown Phone Unavailable Care Team Providers Care Sweat Band Separator Name Role Phone Rosa MONTGOMERY MD Unavailable Unavailable ULISESRosa MD Unavailable Unavailable ULISESRosa FELIX MD Unavailable Unavailable ULISES, C Tashia PASTRANA Unavailable Unavailable ULISES, C Tashia PASTRANA Unavailable Unavailable ULISES, Rosa Lao MD Unavailable Unavailable ULISES, Rosa Lao MD Unavailable Unavailable ULISESRosa FELIX MD Unavailable Unavailable ULISES, Rosa Lao MD Unavailable Unavailable ULISES, Rosa Lao MD Unavailable Unavailable ULISES, C Tashia PASTRANA Unavailable Unavailable ULISES, C Tashia PASTRANA Unavailable Unavailable ULISES, C Tashia PASTRANA Unavailable Unavailable ULISES, C Tashia PASTRANA Unavailable Unavailable ULISES, C Tashia PASTRANA Unavailable Unavailable ULISES, C Tashia PASTRANA Unavailable Unavailable ULISES, C Tashia PASTRANA Unavailable Unavailable ULISES, C Tashia PASTRANA Unavailable Unavailable ULISES, C Tashia PASTRANA Unavailable Unavailable ULISES, C Tashia PASTRANA Unavailable Unavailable ULISES, C Tashia PASTRANA Unavailable Unavailable ULISES, C Tashia PASTRANA Unavailable Unavailable ULISES, Rosa Lao MD Unavailable Unavailable ULISES, Rosa Lao MD Unavailable Unavailable ULISES, Rosa Lao MD Unavailable Unavailable ULISES, C Tashia PASTRANA Unavailable Unavailable ULISES, C Tashia PASTRANA Unavailable Unavailable ULISES, Rosa Lao MD Unavailable Unavailable ULISES, Rosa Lao MD Unavailable Unavailable ULISES, C J MD Unavailable Unavailable ULISES, Rosa Lao MD Unavailable Unavailable ULISES, C J MD Unavailable Unavailable ULISES, C J MD Unavailable Unavailable ULISES, C J MD Unavailable Unavailable ULISES, Rosa J MD Unavailable Unavailable ULISES, Rosa Lao MD Unavailable Unavailable ULISES, C J MD Unavailable Unavailable ULISES, Rosa Lao MD Unavailable Unavailable ULISES, C J MD Unavailable Unavailable ULISES, C J MD Unavailable Unavailable ULISES, C J MD Unavailable Unavailable ULISES, C Tashia MD Unavailable Unavailable ULISES, Rosa Lao MD Unavailable Unavailable ULISES, C J MD Unavailable Unavailable ULISES, C J MD Unavailable Unavailable ULISES, C J MD Unavailable Unavailable ULISES, C J MD Unavailable Unavailable ULISES, C J MD Unavailable Unavailable ULISES, Rosa Lao MD Unavailable Unavailable ULISES, Rosa Lao MD Unavailable Unavailable ULISES, Rosa Lao MD Unavailable Unavailable ULISES, Rosa Lao MD Unavailable Unavailable ULISES, C Tashia MD Unavailable Unavailable ULISES, C Tashia MD Unavailable Unavailable ULISES, C Tashia MD Unavailable Unavailable ULISES, Rosa Lao MD Unavailable Unavailable ULISES, C J MD Unavailable Unavailable ULISES, C J MD Unavailable Unavailable ULISES, C J MD Unavailable Unavailable ULISES, C J MD Unavailable Unavailable ULISES, C J MD Unavailable Unavailable ULISES, C J MD Unavailable Unavailable Cynthia Caraballo MD Unavailable Unavailable Cyntiha Caraballo MD Unavailable Unavailable Cynthia Caraballo MD Unavailable Unavailable Cynthia Caraballo MD Unavailable Unavailable Cynthia Caraballo MD Unavailable Unavailable Cynthia Caraballo MD Unavailable Unavailable Cynthia Caraballo MD Unavailable Unavailable Cynthia Caraballo MD Unavailable Unavailable Cynthia Caraballo MD Unavailable Unavailable Cynthia Caraballo MD Unavailable Unavailable Cynthia Caraballo MD Unavailable Unavailable Cynthia Caraballo MD Unavailable Unavailable Cynthia Caraballo MD Unavailable Unavailable Cynthia Caraballo MD Unavailable Unavailable Cynthia Caraballo MD Unavailable Unavailable Cynthia Caraballo MD Unavailable Unavailable Cynthia Caraballo MD Unavailable Unavailable Cynthia Caraballo MD Unavailable Unavailable Cynthia Caraballo MD Unavailable Unavailable Cynthia Caraballo MD Unavailable Unavailable Cynthia Caraballo MD Unavailable Unavailable Cynthia Caraballo MD Unavailable Unavailable Cynthia Caraballo MD Unavailable Unavailable Cynthia Caraballo MD Unavailable Unavailable Cynthia Caraballo MD Unavailable Unavailable Rashmi F Liam PASTRANA Unavailable Unavailable Rashmi F Liam PASTRANA Unavailable Unavailable Cynthia Caraballo MD Unavailable Unavailable Cynthia Caraballo MD Unavailable Unavailable Cynthia Caraballo MD Unavailable Unavailable Cynthia Caraballo MD Unavailable Unavailable Cynthia Caraballo MD Unavailable Unavailable Rashmi F Liam PASTRANA Unavailable Unavailable Rashmi F Liam PASTRANA Unavailable Unavailable Rashmi F Liam PASTRANA Unavailable Unavailable Rashmi F Liam PASTRANA Unavailable Unavailable Rashmi F Liam PASTRANA Unavailable Unavailable Rashmi F Liam PASTRANA Unavailable Unavailable Rashmi F Liam PASTRANA Unavailable Unavailable Rashmi F Liam PASTRANA Unavailable Unavailable Rashmi F Liam PASTRANA Unavailable Unavailable Rashmi F Liam PASTRANA Unavailable Unavailable Rashmi F Liam PASTRANA Unavailable Unavailable Rashmi F Liam PASTRANA Unavailable Unavailable Rashmi F Liam PASTRANA Unavailable Unavailable Cynthia Caraballo MD Unavailable Unavailable Cynthia Caraballo MD Unavailable Unavailable Cynthia Caraballo MD Unavailable Unavailable Cynthia Caraballo MD Unavailable Unavailable Cynthia Caraballo MD Unavailable Unavailable Cynthia Caraballo MD Unavailable Unavailable Cynthia Caraballo MD Unavailable Unavailable Cynthia Caraballo MD Unavailable Unavailable Cynthia Caraballo MD Unavailable Unavailable Cynthia Caraballo MD Unavailable Unavailable Cynthia Caraballo MD Unavailable Unavailable Cynthia Caraballo MD Unavailable Unavailable Cynthia Caraballo MD Unavailable Unavailable Cynthia Caraballo MD Unavailable Unavailable Cynthia Caraballo MD Unavailable Unavailable Cynthia Caraballo MD Unavailable Unavailable Cynthia Caraballo MD Unavailable Unavailable Cynthia Caraballo MD Unavailable Unavailable Cynthia Caraballo MD Unavailable Unavailable Cynthia Caraballo MD Unavailable Unavailable Cynthia Caraballo MD Unavailable Unavailable Cynthia Caraballo MD Unavailable Unavailable Cynthia Caraballo MD Unavailable Unavailable Cynthia Caraballo MD Unavailable Unavailable Cynthia Caraballo MD Unavailable Unavailable Cynthia Caraballo MD Unavailable Unavailable Cynthia Caraballo MD Unavailable Unavailable Cynthia Caraballo MD Unavailable Unavailable Cynthia Caraballo MD Unavailable Unavailable Cynthia Caraballo MD Unavailable Unavailable Cynthia Caraballo MD Unavailable Unavailable Cynthia Caraballo MD Unavailable Unavailable VanDewall, R Casper DO Unavailable Unavailable VanDewall, R Casper DO Unavailable Unavailable VanDewall, R Casper DO Unavailable Unavailable VanDewall, R Silvia DO Unavailable Unavailable VanDewall, R Silvia DO Unavailable Unavailable VanDewall, R Casper DO Unavailable Unavailable VanDewall, R Silvia DO Unavailable Unavailable VanDewall, R Silvia DO Unavailable Unavailable VanDewall, R Casper DO Unavailable Unavailable VanDewall, R Casper DO Unavailable Unavailable VanDewall, R Silvia DO Unavailable Unavailable VanDewall, R Silvia DO Unavailable Unavailable VanDewall, R Silvia DO Unavailable Unavailable VanDewall, R Casper DO Unavailable Unavailable VanDewall, R Silvia DO Unavailable Unavailable VanDewall, R Casper DO Unavailable Unavailable VanDewall, R Silvia DO Unavailable Unavailable VanDewall, R Silvia DO Unavailable Unavailable VanDewall, R Casper DO Unavailable Unavailable VanDewall, R Casper DO Unavailable Unavailable VanDewall, R Casper DO Unavailable Unavailable VanDewall, R Silvia DO Unavailable Unavailable VanDewall, R Casper DO Unavailable Unavailable VanDewall, R Silvia DO Unavailable Unavailable VanDewall, R Casper DO Unavailable Unavailable VanDewall, R Casper DO Unavailable Unavailable VanDewall, R Casper DO Unavailable Unavailable VanDewall, R Silvia DO Unavailable Unavailable VanDewall, R Casper DO Unavailable Unavailable VanDewall, R Silvia DO Unavailable Unavailable VanDewall, R Silvia DO Unavailable Unavailable VanDewall, R Silvia DO Unavailable Unavailable VanDewall, R Silvia DO Unavailable Unavailable VanDewall, R Casper DO Unavailable Unavailable VanDewall, R Silvia DO Unavailable Unavailable VanDewall, R Casper DO Unavailable Unavailable VanDewall, R Casper DO Unavailable Unavailable VanDewall, R Silvia DO Unavailable Unavailable VanDewall, R Casper DO Unavailable Unavailable VanDewall, R Silvia DO Unavailable Unavailable VanDewall, R Silvia DO Unavailable Unavailable VanDewall, R Silvia DO Unavailable Unavailable VanDewall, R Silvia DO Unavailable Unavailable VanDewall, R Casper DO Unavailable Unavailable VanDewall, R Silvia DO Unavailable Unavailable VanDewall, R Casper DO Unavailable Unavailable VanDewall, R Casper DO Unavailable Unavailable VanDewall, R Silvia DO Unavailable Unavailable VanDewall, R Casper DO Unavailable Unavailable VanDewall, R Silvia DO Unavailable Unavailable VanDewall, R Silvia DO Unavailable Unavailable VanDewall, R Casper DO Unavailable Unavailable Ali, Hui PASTRANA Unavailable Unavailable Ali, Hui PASTRANA Unavailable Unavailable Ali, Hui MD Unavailable Unavailable Ali, Hui MD Unavailable Unavailable Ali, Hui MD Unavailable Unavailable Ali, Hui MD Unavailable Unavailable Ali, Hui MD Unavailable Unavailable Ali, Hui MD Unavailable Unavailable Ali, Hui MD Unavailable Unavailable Ali, Hui MD Unavailable Unavailable Ali, Hui MD Unavailable Unavailable Ali, Hui MD Unavailable Unavailable Ali, Hui MD Unavailable Unavailable Ali, Hui MD Unavailable Unavailable Ali, Hui MD Unavailable Unavailable Ali, Hui MD Unavailable Unavailable Ali, Hui MD Unavailable Unavailable Ali, Hui MD Unavailable Unavailable Ali, Hui MD Unavailable Unavailable Ali, Hui MD Unavailable Unavailable Ali, Hui MD Unavailable Unavailable Ali, Hui MD Unavailable Unavailable Ali, Hui MD Unavailable Unavailable Ali, Hui MD Unavailable Unavailable Ali, Hui MD Unavailable Unavailable Ali, Hui MD Unavailable Unavailable Ali, Hui MD Unavailable Unavailable Ali, Hui MD Unavailable Unavailable Ali, Hui MD Unavailable Unavailable Ali, Hui MD Unavailable Unavailable Ali, Hui PASTRANA Unavailable Unavailable Ali, Hui MD Unavailable Unavailable Ali, Hui MD Unavailable Unavailable Ali, Hui MD Unavailable Unavailable Ali, Hui MD Unavailable Unavailable Ali, Hui MD Unavailable Unavailable Ali, Hui Unavailable Unavailable Ali, Hui MD Unavailable Unavailable Ali, Hui PASTRANA Unavailable Unavailable Ali, Hui PASTRANA Unavailable Unavailable Ali, Hui PASTRANA Unavailable Unavailable Ali, Hui MD Unavailable Unavailable Ali, Hui PASTRANA Unavailable Unavailable Ali, Hui Unavailable Unavailable Ali, Hui MD Unavailable Unavailable Ali, Hui PASTRANA Unavailable Unavailable Ali, Hui PASTRANA Unavailable Unavailable Ali, Hui PASTRANA Unavailable Unavailable Ali, Hui PASTRANA Unavailable Unavailable Ali, Hui PASTRANA Unavailable Unavailable Ali, Hui PASTRANA Unavailable Unavailable Ali, Hui PASTRANA Unavailable Unavailable MuellerNik scott Unavailable Unavailable Ali, Hui PASTRANA Unavailable Unavailable Ali, Hui PASTRANA Unavailable Unavailable Ali, Hui PASTRANA Unavailable Unavailable Ali, Hui PASTRANA Unavailable Unavailable Ali, Hui PASTRANA Unavailable Unavailable Ali, Hui PASTRANA Unavailable Unavailable Ali, Hui PASTRANA Unavailable Unavailable Ali, Hui MD Unavailable Unavailable Ali, Hui Unavailable Unavailable Ali, Hui Unavailable Unavailable Ali, Hui Unavailable Unavailable Ali, Hui PASTRANA Unavailable Unavailable Ali, Hui PASTRANA Unavailable Unavailable Ali, Hui PASTRANA Unavailable Unavailable Ali, Hui PASTRANA Unavailable Unavailable Ali, Hui PASTRANA Unavailable Unavailable Ali, Hui MD Unavailable Unavailable Ali, Hui MD Unavailable Unavailable Ali, Hui MD Unavailable Unavailable Ali, Hui MD Unavailable Unavailable Ali, Hui MD Unavailable Unavailable Ali, Hui MD Unavailable Unavailable Ali, Hui MD Unavailable Unavailable Ali, Hui MD Unavailable Unavailable Ali, Hui MD Unavailable Unavailable Ali, Hui MD Unavailable Unavailable Ali, Hui MD Unavailable Unavailable Ali, Hui MD Unavailable Unavailable Ali, Hui MD Unavailable Unavailable Ali, Hui MD Unavailable Unavailable Ali, Hui MD Unavailable Unavailable Ali, Hui MD Unavailable Unavailable Ali, Hui MD Unavailable Unavailable Ali, Hui MD Unavailable Unavailable Ali, Hui MD Unavailable Unavailable Ali, Hui MD Unavailable Unavailable Ali, Hui MD Unavailable Unavailable Ali, Hui MD Unavailable Unavailable Ali, Hui MD Unavailable Unavailable Ali, Hui MD Unavailable Unavailable Ali, Hui MD Unavailable Unavailable Ali, Hui MD Unavailable Unavailable Ali, Hui MD Unavailable Unavailable Ali, Hui MD Unavailable Unavailable Ali, Hui MD Unavailable Unavailable Ali, Hui MD Unavailable Unavailable Ali, Hui MD Unavailable Unavailable Ali, Hui MD Unavailable Unavailable Ali, Hui MD Unavailable Unavailable Ali, Hui MD Unavailable Unavailable Ali, Hui MD Unavailable Unavailable Ali, Hui MD Unavailable Unavailable Varki, M Jake MD Unavailable Unavailable Varki, M Jake MD Unavailable Unavailable Varki, M Jake MD Unavailable Unavailable Varki, M Jake MD Unavailable Unavailable Varki, M Jake MD Unavailable Unavailable Varki, M Jake MD Unavailable Unavailable Varki, M Jake MD Unavailable Unavailable Varki, M Jake MD Unavailable Unavailable Varki, M Jake MD Unavailable Unavailable Varki, M Jake MD Unavailable Unavailable Varki, M Jake MD Unavailable Unavailable Varki, M Jake MD Unavailable Unavailable Varki, M Jake MD Unavailable Unavailable Varki, M Jake MD Unavailable Unavailable Varki, M Jake MD Unavailable Unavailable Varki, M Jake MD Unavailable Unavailable Varki, M Jake MD Unavailable Unavailable Varki, M Jake MD Unavailable Unavailable Varki, M Jake MD Unavailable Unavailable Varki, M Jake MD Unavailable Unavailable Varki, M Jake MD Unavailable Unavailable Varki, M Jake MD Unavailable Unavailable Varki, M Jake MD Unavailable Unavailable Varki, M Jake MD Unavailable Unavailable Varki, M Jake MD Unavailable Unavailable Varki, M Jake MD Unavailable Unavailable Varki, M Jake MD Unavailable Unavailable Varki, M Jake MD Unavailable Unavailable Varki, M Jake MD Unavailable Unavailable Varki, M Jake MD Unavailable Unavailable Varki, M Jake MD Unavailable Unavailable Varki, M Jake MD Unavailable Unavailable Varki, M Jake MD Unavailable Unavailable Varki, M Jake MD Unavailable Unavailable Varki, M Jake MD Unavailable Unavailable Varki, M Jake MD Unavailable Unavailable Varki, M Jake MD Unavailable Unavailable Varki, M Jake MD Unavailable Unavailable Varki, M Jake MD Unavailable Unavailable Varki, M Jake MD Unavailable Unavailable Varki, M Jake MD Unavailable Unavailable Varki, M Jake MD Unavailable Unavailable Varki, M Jake MD Unavailable Unavailable Varki, M Jake MD Unavailable Unavailable Varki, M Jake MD Unavailable Unavailable Varki, M Jake MD Unavailable Unavailable Varki, M Jake MD Unavailable Unavailable Re-disclosure Warning The records that you are about to access may contain information from federally-assisted alcohol or drug abuse programs. If such information is present, then the following federally mandated warning applies: This information has been disclosed to you from records protected by federal confidentiality rules (42 CFR part 2). The federal rules prohibit you from making any further disclosure of this information unless further disclosure is expressly permitted by the written consent of the person to whom it pertains or as otherwise permitted by 42 CFR part 2. A general authorization for the release of medical or other information is NOT sufficient for this purpose. The Federal rules restrict any use of the information to criminally investigate or prosecute any alcohol or drug abuse patient.The records that you are about to access may contain highly sensitive health information, the redisclosure of which is protected by Article 27-F of the [facility] Public Health law. If you continue you may have access to information: Regarding HIV / AIDS; Provided by facilities licensed or operated by the [facility] Office of Mental Health; or Provided by the [facility] Office for People With Developmental Disabilities. If such information is present, then the following [facility] mandated warning applies: This information has been disclosed to you from confidential records which are protected by state law. State law prohibits you from making any further disclosure of this information without the specific written consent of the person to whom it pertains, or as otherwise permitted by law. Any unauthorized further disclosure in violation of state law may result in a fine or usp sentence or both. A general authorization for the release of medical or other information is NOT sufficient authorization for further disc losure. Allergies and Adverse Reactions Type Description Substance Reaction Status Data Source(s ) Propensity to adverse reactions NO KNOWN ALLERGIES NO KNOWN ALLERGIES [facility] Family History Family Member Name Family Member Gender Family Member Status Date o f Status Description Data Source(s) Unknown Male Problem [facility] ([facility]) Encounters Encounter Providers Location Date Indications Data Source(s ) Outpatient Attender: Jake Thorpe MDReferrer: Liam Caraballo MD 08/31/2021 04:59:09 PM EDT [facility] Outpatient Referrer: Liam Caraballo MD 08/30/2021 04:31:30 PM EDT [facility] Outpatient 08/30/2021 04:31:12 PM EDT [facility] Attender: Nik Daniel: Hui Alston MD 08/01/2021 08:21:09 PM EDT [facility] Out[facility] Attender: Liam Lucas 07/31 02:30:00 PM EDT [facility] ([facility] ) Outpatient Attender: Hui Alston MD Main office - [place] 07/26/2021 02:15:00 PM EDT [facility] ([facility] ) Attender: Nik Daniel: Hui Alston MD 06/25/2021 08:21:07 PM EDT [facility] Attender: Nik Dyerr: Hui Alston MD 06/25/2021 08:21:07 PM EDT [facility] Attender: Nik Daniel: Hui Alston MD 06/15/2021 08:21:07 PM EDT [facility] Attender: Nik Daniel: Hui Alston MD 06/13/2021 08:21:07 PM EDT [facility] Attender: Nik Daniel: Silvia felix DO 06/13/2021 08:21:07 PM EDT [facility] Attender: Nik Daniel: Silvia felix DO 06/05/2021 08:21:07 PM EDT [facility] Attender: Nik Waltonferrer: Silvia Celestemildred isidro DO 06/05/2021 08:21:07 PM EDT [facility] Attender: Nik Blockrer: Silvia Celestemildred isidro DO 05/18/2021 08:21:06 PM EDT [facility] Attender: Nik Waltonferrer: Casper Danie felix DO 05/18/2021 08:21:06 PM EDT [facility] Attender: Hui Alston MD Main office - [place] 05/15/2021 02:30:00 PM EDT [facility] ([facility]) Outpatient Attender: Liam Lucas 03/26 02:00:00 PM EDT [facility] ([facility] ) Outpatient Attender: Hui Alston MD Main office - [place] 02/01/2021 12:45:00 PM EST [facility] ([facility]) Outpatient Attender: Tashia MONTGOMERY MD 12/15/2020 12:00:00 AM [facility] Outpatient Attender: Liam Lucas 11/17 01:30:00 PM EST [facility] ([facility] ) Outpatient Attender: Hui Alston MD Main office - [place] 11/02/2020 10:00:00 AM EST [facility] ([facility]) Outpatient Attender: Liam Lucas 08/31 11:30:00 AM EDT [facility] ([facility] ) Immunizations Vaccine Date Status Description Data Source(s) COVID-19 VACCINE Moderna 10/05/2021 12:00:00 AM EDT completed [facility] Vaccine Series Complete: YESThis Data wa s Submitted to [facility] Via [employer]. COVID-19 VACCINE Moderna 03/13/2021 12:00:00 AM EDT completed [facility] Vaccine Series Complete: YESThis Data wa s Submitted to [facility] Via [employer]. COVID-19 VACCINE Moderna 02/13/2021 12:00:00 AM EDT completed [facility] Vaccine Series Complete: NOThis Data was Submitted to [facility] Via [employer]. INFLUENZA VIRUS VACCINE QUADRIVAL [id number](6 MOS AND UP)/PF 08/29/2020 12:00:00 AM EDT completed [facility] Medications Medication Brand Name Start Date Product Form Dose Route Admi nistrative Instructions Pharmacy Instructions Status Indications Reaction Description Data Source(s) 36 mg 10/09/2021 12:00:00 AM EST tablet extended release 24hr 30 TAKE ONE TABLET BY MOUTH EVERY DAY MAXIMUM DAILY DOSE = 1 TAKE ONE TABLET BY MOUTH EVERY DAY MAXIMUM DAILY DOSE = 1 SOLD: 10/09/2021 [facility] 7.5 mg 10/05/2021 12:00:00 AM EDT tablet 30 TAKE ONE TABLET BY MOUTH EVERY DAY AT NIGHT TAKE ONE TABLET BY MOUTH EVERY DAY AT NIGHT SOLD: 10/05/2021 [facility] Paroxetine Hydrochloride 30 MG Oral Tablet PAROXETINE HCL 10/05/2021 12:00:00 AM EDT tablet 30 TAKE ONE TABLET BY MOUTH TAKE ONE TABLET BY MOUTH EVERY DAY SOLD: 10/05/2021 [facility] 0.5 mg 09/28/2021 12:00:00 AM EDT tablet 45 TAKE ONE TABLET BY MOUTH EVERY MORNING AND 1/2 TABLET EVERY NIGHT MAXIMUM DAILY DOSE = 1 & 1/2 TABLETS TAKE ONE TABLET BY MOUTH EVERY MORNING AND 1/2 TABLET EVERY NIGHT MAXIMUM DAILY DOSE = 1 & 1/2 TABLETS SOLD: 10/05/2021 [facility] 60 mcg (15 mcg x 4)/0.5 mL 09/28/2021 12:00:00 AM EDT [facility] 0 INJECT DIRECTED INJECT DIRECTED SOLD: 09/28/2021 [facility] onabotulinumtoxinA 200 UNT/ML Injectable Solution [Botox] Jorge tox 09/14/2021 12:00:00 AM EDT active Ron ANDERSEN ([facility]) 7.5 mg 09/12/2021 12:00:00 AM EDT tablet 30 TAKE ONE TABLET BY MOUTH IN THE EVENING TAKE ONE TABLET BY MOUTH IN THE EVENING SOLD: 09/17/2021 [facility] Paroxetine Hydrochloride 30 MG Oral Tablet PAROXETINE HCL 09/11/2021 12:00:00 AM EDT tablet 30 TAKE ONE TABLET BY MOUTH SAMIRA RY DAY TAKE ONE TABLET BY MOUTH EVERY DAY SOLD: 09/17/2021 [facility] 0.5 mg 08/24/2021 12:00:00 AM EDT tablet 45 TAKE ONE TABLET BY MOUTH IN THE MORNING AND TAKE ONE-HALF TABLET AT BEDTIME MAXIMUM DAILY DOSE = 1 & 1/2 TAKE ONE TABLET BY MOUTH IN THE MORNING AND TAKE ONE-HALF TABLET AT BEDTIME MAXIMUM DAILY DOSE = 1 & 1/2 SOLD: 08/29/2021 [facility] 20 mg 08/22/2021 12:00:00 AM EDT tablet 30 TAKE ONE TABLET BY MOUTH EVERY DAY TAKE ONE TABLET BY MOUTH EVERY DAY SOLD: 08/23/2021 [facility] 7.5 mg 08/22/2021 12:00:00 AM EDT tablet 30 TAKE ONE TABLET BY MOUTH AT BEDTIME TAKE ONE TABLET BY MOUTH AT BEDTIME SOLD: 08/23/2021 [facility] 20 mg 08/12/2021 12:00:00 AM EDT tablet 180 TAKE ONE-HALF TABLET BY MOUTH TWICE A DAY FOR 1 WEEK THEN TAKE ONE TABLET BY MOUTH TWICE A DAY TAKE ONE-HALF TABLET BY MOUTH TWICE A DAY FOR 1 WEEK THEN TAKE ONE TABLET BY MOUTH TWICE A DAY SOLD: 08/12/2021 [facility] Propranolol Hydrochloride 20 MG Oral Tablet Propranolol HCL 07/26/2021 12:00:00 AM EDT ORAL active [facility] ([facility] No Active Medications 07/26/2021 12:00:00 AM EDT completed [facility] ([facility]) 0.5 mg 07/24/2021 12:00:00 AM EDT tablet 45 TAKE 1 TABLET BY MOUTH EVERY MORNING AND 1/2 TABLETS BY MOUTH EVERY NIGHT MAXIMUM DAILY DOSE = 1 & 1/2 TABLETS TAKE 1 TABLET BY MOUTH EVERY MORNING AND 1/2 TABLETS BY MOUTH EVERY NIGHT MAXIMUM DAILY DOSE = 1 & 1/2 TABLETS SOLD: 07/26/2021 [facility] 200 mg/mL 07/16/2021 12:00:00 AM EDT oil 4 INJECT 1ML INTRAMUSCULARLY WEEKLY MAXIMUM DAILY DOSE = 1ML INJECT 1ML INTRAMUSCULARLY WEEKLY MAXIMU M DAILY DOSE = 1ML SOLD: 07/17/2021 [facility] 20 mg 07/14/2021 12:00:00 AM EDT tablet 30 TAKE ONE TABLET BY MOUTH EVERY DAY TAKE ONE TABLET BY MOUTH EVERY DAY SOLD: 07/15/2021 [facility] 7.5 mg 07/14/2021 12:00:00 AM EDT tablet 30 TAKE ONE TABLET BY MOUTH EVERY EVENING TAKE ONE TABLET BY MOUTH EVERY EVENING SOLD: 07/15/2021 [facility] 0.5 mg 06/24/2021 12:00:00 AM EDT tablet 45 TAKE 1 TABLET BY MOUTH EVERY MORNING AND 1/2 TAB. EVERY NIGHT MAXIMUM DAILY DOSE = 1 & 1/2 TABLETS TAKE 1 TABLET BY MOUTH EVERY MORNING AND 1/2 TAB. EVERY NIGHT MAXIMUM DAILY DOSE = 1 & 1/2 TABLETS SOLD: 06/25/2021 [facility] 7.5 mg 06/23/2021 12:00:00 AM EDT tablet 30 TAKE 1 TABLET BY MOUTH EVERY NIGHT TAKE 1 TABLET BY MOUTH EVERY NIGHT SOLD: 06/25/2021 [facility] 20 mg 06/23/2021 12:00:00 AM EDT tablet 30 TAKE 1 TABLET BY MOUTH ONCE A DAY TAKE 1 TABLET BY MOUTH ONCE A DAY SOLD: 06/25/2021 [facility] 17 gram/dose 06/13/2021 12:00:00 AM EDT powder 238 USE DIRECTED BY USE DIRECTED BY MD SOLD: 06/15/2021 [facility] 225 mg/1.5 mL 06/08/2021 12:00:00 AM EDT syringe 1 INJECT 225 MG UNDER THE SKIN ONCE PER MONTH INJECT 225 MG UNDER THE SKIN ONCE PER MONTH SOLD: 05/31 [facility] 7.5 mg 05/28/2021 12:00:00 AM EDT tablet 30 TAKE ONE TABLET BY MOUTH EVERY DAY AT BEDTIME FOR SLEEP TAKE ONE TABLET BY MOUTH EVERY DAY AT BE DTIME FOR SLEEP SOLD: 06/01/2021 [facility] 20 mg 05/26/2021 12:00:00 AM EDT tablet 30 TAKE ONE TABLET BY MOUTH EVERY DAY TAKE ONE TABLET BY MOUTH EVERY DAY SOLD: 05/26/2021 [facility] 0.5 mg 05/26/2021 12:00:00 AM EDT tablet 45 TAKE 1 TABLET BY MOUTH EVERY MORNING AND 1/2 TAB. EVERY NIGHT MAXIMUM DAILY DOSE = 1 & 1/2 TAKE 1 TABLET BY MOUTH EVERY MORNING AND 1/2 TAB. EVERY NIGHT MAXIMUM DAILY DOSE = 1 & 1/2 SOLD: 05/26/2021 [facility] Ajovy Ajovy 05/15/2021 12:00:00 AM EDT completed [facility] ([facility]) 10 mg 05/15/2021 12:00:00 AM EDT tablet 21 TAKE TWO TABLETS BY MOUTH EVERY DAY IN THE MORNING FOR 1 WEEK THEN 1 IN THE MORNING FOR 1 WEEK THEN STOP MAXIMUM DAILY DOSE = 2 TAKE TWO TABLETS BY MOUTH EVERY DAY IN T HE MORNING FOR 1 WEEK THEN 1 IN THE MORNING FOR 1 WEEK THEN STOP MAXIMUM DAILY DOSE = 2 SOLD: 05/15/2021 [facility] Methylphenidate Hydrochloride 10 MG Oral Tablet Methylphenid ate HCL 05/15/2021 12:00:00 AM EDT ORAL completed [facility] ([facility]) 7.5 mg 05/15/2021 12:00:00 AM EDT tablet 20 TAKE ONE TABLET BY MOUTH EVERY NIGHT NEEDED FOR SLEEP TAKE ONE TABLET BY MOUTH EVERY NIGHT NEEDED FOR SLEEP SOLD: 05/15/2021 [facility] Paroxetine Hydrochloride 10 MG Oral Tablet PAROXETINE HCL 04/27/2021 12:00:00 AM EDT tablet 30 TAKE ONE TABLET BY MOUTH SAMIRA DAY TAKE ONE TABLET BY MOUTH EVERY DAY SOLD: 04/29/2021 [facility] 200 mg/mL 04/20/2021 12:00:00 AM EDT oil 4 INJECT 1ML INTRAMUSCULARLY ONCE WEEKLY MAXIMUM DAILY DOSE = 1ML PER WEEK INJECT 1ML INTRAMUSCULARLY ONCE WEEKLY MAXIMUM DAILY DOSE = 1ML PER WEEK SOLD: 04/21/2021 [facility] 15 mg 04/09/2021 12:00:00 AM EDT tablet 24 TAKE ONE TABLET BY MOUTH EVERY OTHER NIGHT FOR 7 DAYS THEN NIGHTLY TAKE ONE TABLET BY MOUTH EVERY OTHER NIG HT FOR 7 DAYS THEN NIGHTLY SOLD: 04/09/2021 [facility] 0.5 mg 04/03/2021 12:00:00 AM EDT tablet 60 TAKE ONE TABLET BY MOUTH TWICE A DAY NEEDED MAXIMUM DAILY DOSE = 2 TAKE ONE TABLET BY MOUTH TWICE A DAY NEEDED MAXIMUM DAILY DOSE = 2 SOLD: 04/05/2021 [facility] 1,250 mcg (50,000 unit) 03/27/2021 12:00:00 AM EDT capsule 18 TAKE 1 CAPSULE BY MOUTH ONCE A WEEK AND EXTRA DOSE EVERY OTHER WEEK TAKE 1 CAPSULE BY MOUTH ONCE A WEEK AND EXTRA DOSE EVERY OTHER WEEK SOLD: 08/29/2021 [facility] Ketoconazole 20 MG/ML Topical Cream Ketoconazole 03/26/2021 12:00:00 AM EDT active [facility] ([facility]) 10 mg 03/07/2021 12:00:00 AM EDT tablet 60 TAKE ONE TABLET BY MOUTH TWICE A DAY TAKE ONE TABLET BY MOUTH TWICE A DAY SOLD: 03/07/2021 [facility] 10 mg 03/07/2021 12:00:00 AM EDT tablet 60 TAKE ONE TABLET BY MOUTH TWICE A DAY TAKE ONE TABLET BY MOUTH TWICE A DAY SOLD: 04/17/2021 [facility] Propranolol Hydrochloride 10 MG Oral Tablet Propranolol HCL 03/07/2021 12:00:00 AM EDT ORAL completed [facility] ([facility] ) 36 mg 02/28/2021 12:00:00 AM EDT tablet extended release 24hr 90 TAKE ONE TABLET BY MOUTH EVERY MORNING MAXIMUM DAILY DOSE = 1 TABLET TAKE ONE TABLET BY MOUTH EVERY MORNING MAXIMUM DAILY DOSE = 1 TABLET SOLD: 02/28/2021 [facility] Alprazolam 0.25 MG Oral Tablet ALPRAZOLAM 02/26/2021 12:00:00 AM EDT tablet 14 TAKE ONE TABLET BY MOUTH TWICE A DAY NEEDED FOR ANXIETY MAXIMUM DAILY DOSE = 2 TABLETS TAKE ONE TABLET BY MOUTH TWICE A DAY NEEDED FOR ANXIETY MAXIMUM DAILY DOSE = 2 TABLETS SOLD: 02/28/2021 [facility] 200 mg/mL 02/10/2021 12:00:00 AM EST oil 4 INJECT 1ML INTRAMUSCULARLY ONCE WEEKLY MAXIMUM DAILY DOSE = 1ML PER WEEK INJECT 1ML INTRAMUSCULARLY ONCE WEEKLY MAXIMUM DAILY DOSE = 1ML PER WEEK SOLD: 02/13/2021 [facility] 0.5 mg 02/04/2021 12:00:00 AM EST tablet 60 TAKE ONE TABLET BY MOUTH TWICE A DAY NEEDED MAXIMUM DAILY DOSE = 2 TABLETS TAKE ONE TABLET BY MOUTH TWICE A DAY NEEDED MAXIMUM DAILY DOSE = 2 TABLETS SOLD: 02/10/2021 [facility] 1 mg 01/16/2021 12:00:00 AM EST tablet 40 TAKE ONE TABLET BY MOUTH TWICE A DAY NEEDED, MAXIMUM DAILY DOSE = 2 TAKE ONE TABLET BY MOUTH TWICE A DAY NEEDED, MAXIMUM DAILY DOSE = 2 SOLD: 01/16/2021 [facility] 200 mg/mL 12/23/2020 12:00:00 AM EST oil 4 INJECT 1ML INTRAMUSCULARLY WEEKLY MAXIMUM DAILY DOSE = 1ML EVERY WEEK INJECT 1ML INTRAMUSCULARLY WEEKLY MAXIMU M DAILY DOSE = 1ML EVERY WEEK SOLD: 12/25/2020 [facility] Alprazolam 0.25 MG Oral Tablet ALPRAZOLAM 12/20/2020 12:00:00 AM EST tablet 60 TAKE ONE TABLET BY MOUTH TWICE A DAY NEEDED MAXIMUM DAILY DOSE = 2 TABLETS TAKE ONE TABLET BY MOUTH TWICE A DAY NEEDED MAXIMUM DAILY DOSE = 2 TABLETS SOLD: 12/25/2020 [facility] 40 mg 12/19/2020 12:00:00 AM EST capsule 30 TAKE ONE CAPSULE BY MOUTH EVERY MORNING TAKE ONE CAPSULE BY MOUTH EVERY MORNING SOLD: 12/19/2020 [facility] Alprazolam 0.25 MG Oral Tablet ALPRAZOLAM 12/02/2020 12:00:00 AM EST tablet 36 TAKE ONE TABLET BY MOUTH TWICE A DAY NEEDED, MAXIMU M DAILY DOSE = 2 TAKE ONE TABLET BY MOUTH TWICE A DAY NEEDED, MAXIMUM DAILY DOSE = 2 SOLD: 12/03/2020 [facility] 20 mg 11/28/2020 12:00:00 AM EST capsule 30 TAKE ONE CAPSULE BY MOUTH EVERY MORNING TAKE ONE CAPSULE BY MOUTH EVERY MORNING SOLD: 12/03/2020 [facility] 50 mg 11/21/2020 12:00:00 AM EST tablet 60 TAKE ONE TO TWO TABLETS BY MOUTH IN THE EVENING TAKE ONE TO TWO TABLETS BY MOUTH IN THE EVENING SOLD: 2019 [facility] Alprazolam 0.25 MG Oral Tablet ALPRAZOLAM 11/14/2020 12:00:00 AM EST tablet 30 TAKE ONE TABLET BY MOUTH TWICE A DAY NEEDED MAXIMUM DAILY DOSE = 2 TABLETS TAKE ONE TABLET BY MOUTH TWICE A DAY NEEDED MAXIMUM DAILY DOSE = 2 TABLETS SOLD: 11/14/2020 [facility] 20 mg 11/06/2020 12:00:00 AM EST capsule 30 TAKE ONE CAPSULE BY MOUTH EVERY DAY IN THE MORNING TAKE ONE CAPSULE BY MOUTH EVERY DAY IN THE MORNING RICHARD [facility] 50 mg 11/02/2020 12:00:00 AM EST tablet 60 TAKE ONE-HALF TABLET BY MOUTH AT BEDTIME FOR 1 WEEK THEN TAKE ONE TABLET BY MOUTH AT BEDTIME FOR 1 WEEK THEN TAKE TWO TABLETS BY MOUTH AT BEDTIME MAXIMUM DAILY DOSE = 2 TAKE ONE-HALF TABLET BY MOUTH AT BEDTIME FOR 1 WEEK THEN TAKE ONE TABLET BY MOUTH AT BEDTIME FOR 1 WEEK THEN TAKE TWO TABLETS BY MOUTH AT BEDTIME MAXIMUM DAILY DOSE = 2 SOLD: 11/04/2020 [facility] 20.25 mg/1.25 gram (1.62 %) 11/01/2020 12:00:00 AM EST gel in metered-dose pump 150 USE 4 PUMPS DAILY MAXIMUM DAILY DOSE = 4 PUMPS USE 4 PUMPS DAILY MAXIMUM DAILY DOSE = 4 PUMPS SOLD: 11/04/2020 [facility] Alprazolam 0.25 MG Oral Tablet ALPRAZOLAM 10/25/2020 12:00:00 AM EST tablet 30 TAKE ONE TABLET BY MOUTH TWO TIMES A DAY , MAXIMUM PANKAJ LY DOSE = 2 TABLETS TAKE ONE TABLET BY MOUTH TWO TIMES A DAY , MAXIMUM DAILY DOSE = 2 TABLETS SOLD: 10/27/2020 [facility] Alprazolam 0.25 MG Oral Tablet ALPRAZOLAM 10/16/2020 12:00:00 AM EST tablet 14 TAKE ONE TABLET BY MOUTH TWICE A DAY NEEDED FOR ANXIETY MAXIMUM DAILY DOSE = 2 TAKE ONE TABLET BY MOUTH TWICE A DAY NEEDED FOR ANXIETY MAXIMUM DAILY DOSE = 2 SOLD: 10/17/2020 [facility] 20 mg 09/28/2020 12:00:00 AM EDT capsule 30 TAKE ONE CAPSULE BY MOUTH EVERY MORNING TAKE ONE CAPSULE BY MOUTH EVERY MORNING SOLD: 09/29/2020 [facility] 20.25 mg/1.25 gram (1.62 %) 09/25/2020 12:00:00 AM EDT gel in metered-dose pump 150 USE 4 PUMPS ONCE DAILY MAXIMUM D AILY DOSE = 4 PUMPS USE 4 PUMPS ONCE DAILY MAXIMUM DAILY DOSE = 4 PUMPS SOLD: 09/25/2020 [facility] Alprazolam 0.25 MG Oral Tablet ALPRAZOLAM 09/15/2020 12:00:00 AM EDT tablet 14 TAKE ONE TABLET BY MOUTH TWICE A DAY NEEDED FOR ANXIETY MAXIMUM DAILY DOSE = 2 TABLETS TAKE ONE TABLET BY MOUTH TWICE A DAY NEEDED FOR ANXIETY MAXIMUM DAILY DOSE = 2 TABLETS SOLD: 09/17/2020 [facility] 50 mg 09/08/2020 12:00:00 AM EDT tablet 30 TAKE ONE-HALF TABLET BY MOUTH EVERY DAY TAKE ONE-HALF TABLET BY MOUTH EVERY DAY SOLD: 09/10/2020 [facility] Paroxetine Hydrochloride 40 MG Oral Tablet PAROXETINE HCL 09/05/2020 12:00:00 AM EDT tablet 30 TAKE ONE-HALF TA BLET BY MOUTH EVERY DAY FOR ONE WEEK FOLLOWED BY ONE TABLET BY MOUTH EVERY EVENING TAKE ONE-HALF TABLET BY MOUTH EVERY DAY FOR ONE WEEK FOLLOWED BY ONE TABLET BY MOUTH EVERY EVENING SOLD: 09/10/2020 [facility] Paroxetine 40 MG Oral Tablet [Paxil] Paxil 08/31/2020 12:00:00 AM EDT completed [facility] ([facility]) HM [place]-3-6-9 Fatty Acids 08/31/2020 12:00:00 AM EDT active [facility] ([facility]) Aspirin 81 MG Delayed Release Oral Tablet Aspirin 81 2019 12:00:00 AM EDT ORAL active [facility] ( [facility]) 1,250 mcg (50,000 unit) 08/14/2020 12:00:00 AM EDT capsule 12 TAKE 1 CAPSULE BY MOUTH WEEKLY TAKE 1 CAPSULE BY MOUTH WEEKLY SOLD: 11/21/2020 [facility] 1,250 mcg (50,000 unit) 08/14/2020 12:00:00 AM EDT capsule 12 TAKE 1 CAPSULE BY MOUTH WEEKLY TAKE 1 CAPSULE BY MOUTH WEEKLY SOLD: 02/24/2021 [facility] Amoxicillin 875 MG / Clavulanate 125 MG Oral Tablet Am oxicillin/Clavulanate Potassium 05/16/2020 12:00:00 AM EDT ORAL completed [facility] ([facility]) 0.05 % 02/07/2020 12:00:00 AM EDT dropperette 180 INSTILL 1 DROP INTO BOTH EYES TWO TIMES A DAY DIRECTED INSTILL 1 DROP INTO BOTH EYES TWO TIMES A DAY DIRECTED SOLD: 10/14/2020 [facility] Insurance Providers Payer name Policy type / Coverage type Policy ID Covered green party ID Covered green party's relationship to campos Policy Campos Plan Information [facility] y prime/Software Technology Medigap Part B [id number] Self [id number] [facility] y prime/Software Technology Commercial [id number] Self [id number] [facility] y prime/[employer] Commercial [id number] Self [id number] EXCELLUS H [id number] Self [id number] BS [place] [employer]/MX Commercial [id number] Self [id number] [place]/307 [id number] SP [id number] [place] 302/307 [id number] SP [id number] [place] 302/307 [id number] SP [id number] EXCELLUS H [id number] Self [id number] EXCELLUS BCBS [id number] Rajwinder YND [id number] EX[employer] BCBS [id number] Rajwinder YND [id number] [facility] Medigap Part B [id number] Self [id number] [facility] Medigap Part B [id number] Self [id number] [facility] Medigap Part B [id number] Self [id number] [facility] Medigap Part B [id number] Self [id number] [facility] Medigap Part B [id number] Self [id number] [facility] Medigap Part B [id number] Self [facility] Medigap Part B [id number] Self [id number] SELF PAY ONLY [id number] SP [id number] [facility] [id number] SELF PAY [id number] SP [id number] EXCELLUS BCBS P [id number] S VYS [id number] [facility] [id number] [facility] [id number] Problems, Conditions, and Diagnoses Code Display Name Description Problem Type Effective Dates Data Source(s) R53.83 Malaise and fatigue Malaise and fatigue Problem 1 01/03/2020 12:00:00 AM EST [facility] ([facility] ) Surgeries/Procedures Procedure Description Date Indications Data Source(s) CHEMODNRVTJ MUSC MUSC INNERVATED FACIAL NRV 10/03/2021 12:00:00 AM EDT [facility] ([facility] ) OFFICE OUTPATIENT VISIT 25 MINUTES 07/31/2021 12:00:00 AM EDT [facility] ([facility]) Colonoscopy 07/30/2021 12:00:00 AM EDT M EDENT ([facility]) OFFICE OUTPATIENT VISIT 40 MINUTES 07/26/2021 12:00:00 AM EDT [facility] ([facility] ) OFFICE OUTPATIENT VISIT 25 MINUTES 05/15/2021 12:00:00 AM EDT [facility] ([facility], ) ECG ROUTINE ECG W/LEAST 12 LDS W/I&R 03/26/2021 12:00: 00 AM EDT [facility] ([facility]) OFFICE OUTPATIENT VISIT 25 MINUTES 03/26/2021 12:00:00 AM EDT [facility] ([facility]) OFFICE OUTPATIENT VISIT 25 MINUTES 02/01/2021 12:00:00 AM EST [facility] ([facility] Results ID Date Data Source [id number] 07/30/2021 09:00:00 AM EDT [facility] Name Value Range Interpretation Code Description Data Dayanara rce(s) Supporting Document(s) Colonoscopy [facility] VLAGBz3yAiUJJfKeIMPeNzsVLDaaVEokXAUqZ8M5WFhmLi5OVQiwplBlDFGzCx8+PNRoLL0lgy1uWSGq gMy [file] R00OMpO2Td2qpuAsaCu64p7hI48a173r/hK/XYvxC+H6AfTVnKf2qw+GONZÁLEZ/H+8gB0vPaFjvwBC31j0XW [file] O8t8LevLQB6IXN2YyH9M8YJSLR3xPmxYZG7+89T8cNAti/0qnu+juan diego/mu3obGUrZF34InZBAXi0bqymr [file] aQLZGgEmKzRBT3ZEXlVw6unUZvTI0RQpEACLEEAMPZXQWAAVZXCMH8DLUEYLGnOJELCXWtWALXWMFUIC LVCylNWVEUDorOUMRJGnfRFPKKQyf7JXEYHauFWZ8SBR3le7XgYORcNQtzinHnHxbVOKwevIXlhYmgEB JQMzQ3LwQ8RZ1FPWZTZ9M= ID Date Data Source [id number] 06/13/2021 11:00:00 AM EDT [facility] Name Value Range Interpretation Code Description Data Dayanara rce(s) Supporting Document(s) Follow Up [facility] SOQNBx4iOjJFKfXgCLUzAarNMXzeGOhaZFBvP6I6PFzoNi6DCMaztvUoQKQhDx6+DRPbUG8ugq2eWWVm gMy [file] K6jHE4oXw/TySd5R4R3lMuOChhe6CNXbbVEQP/maori/eUhEh+GRISELDA+LT+6SM1tvYWQ0G6yuBR/JWIcZ+lee ann [file] Ejd4gJkdu4Xgq2pr8u/laborer tan house/H3+2btD9k8+eMds+oUq3TFP9hI/KMnxzpuFc5VG+v1ofuWEDZpc5WhCnB [file] civil service clerk/nQ3DKBUQkklSRolinnZPdi8mRHnwazOVHxuWNZox1df9T9yJapjDWIud7sajt911DEb8+mVeAy+e [file] jqR+Foreign Legal Consultant+O1Bth42ccHjz8DFoe5TrZViDA+buklWFTEguJf15r2D1exuHuzC6rRZs2VRiq3oZKMwzqXSpP [file] GlZqiBXTKsrPmVVizKN7BCvoHGmUDQHPX15jWkeMe6bk2/5pQ47jrvTjitBfbEwQ2ZcS+cloIvO9/+motion study engineer z0efi/8wp+e98hw5pPJOzBScp3yEXhbVBCnEyz+Hp/NqcWKaYFLh5XfoH5R5RsUgd/Z8vSa+eiFTKPey 4VIBQRzltFd8eDUZetOX2miH2K/DeGgCx/NFXh26sX iB/nywxhR/sz9b9u2cEK6eXcFLi5j2cbN+eEyXlSCkQGJRS/noWrmtg7bRVWGnzBbSrvvqZ6m3XMlLS2 dar7ygZdeYosNsujCXfYJWpTcBpajOalGUXXRjk2r4XVRp0AtvjY9J05lE+Ol5kSTDcbf3h/E3w+A4cg WQ+FRsedDHYuWYVo1z9sDoRyR+1VWUhhVYlZOn7L1y lWr+qyE5UC8asIYT0q7zcXWFgD3udVhq8OwkMAl2fSWn6UW0EbcIyNFrgLkuYk7rn7Dn6PHAmx2xsPnr MB64eUzilr4tH3njsngUw60RXV5KbjoaJo6WJU9ajhZUx2X202zp+FvX9tB5H4tVwK0ixmEnNbmYUYKW pUsDueDChLdOmF2NqgHEuhK2w1p7NIdJCjOINDzsdw BQKwoOeg1HImvoAhOiuUKqB9sC/pYKdX692XEugJnRKQhVaY91X/1izbJ/KumciuCdpeF5BEK2cq3052 xB31Ka1CkoprSjQENqjL/RXZGajo/DbETvea4GoharFP5rzbt8B7LYFCTdPP0IzlCxBrdjeh4StZHj0f 04Fygq8q7Y4A9v02lW/40faC7ef1/+YSb0z0XzA19I [file] PWYWF6qp+xINRi5/CB5Sh4oxuxd+pP0mTHtVQ7/cement fittings maker [file] cNI61g9zIjkYmekYzQLCks/Nz1aqfJTwASe2tR// bCRwf1FbfEYWsaD7I3UjoJUBtMtME0saYummJ1hvbnK1M/6yvOGdJihvHiDLGMy41bYiSjwGnVqrNfAc MBklenfJUAmo9DIwippyZKrhTK3A+1vJ22fz5y7u25jDvG4gapb61IgCE92geacWZz6OpHD0cFVe+P0h uim4uvis86lVejMUckq5XJARdwvtkwBOnnIukOIX2s vKfypomMnNuEcj09eHhseh0HhkmPuFUFq+rWfodKohTcU4hlm/22ZdhjL+heqsCjKmgphOkIm9xqrWIJ H0NWnW/voFqH6/4E5jms/uvaBTmyrsP8QFWdFaKxnXySdw2e9pSl0JtblWP1xbipDN+B90QKhwAhTGsG Elim [file] 2X+aTI0y5+DTqERHX6AR4qxV29zdwf4j2Qf2H5QjFH5EGIaefxL+AjgAjhv+CUTTER MACHINE TENDER+CHEMdUlvqnvHmj9Gm [file] ot+xxi+TRz7PX9eg6kQlO0Q5RxlIg2evUHdUntxju8Vj8x74WKniwtfG9HEocc9N0fniqKb/jT/p+Maria Esther iMl6ShK2mhgNehZIFqp+I7mAWEk2y7cbQRHOIl/EKF f9qBB3npsboggmmYZDCH33eKMtIMBkLJ3O1J5WrwZM+ehmRA1zdA9zgsiAv6OE5tlL6ordmze6rT/0qb SvMDgSZuYtPyQZ25UJVzJ6sDBbqgHuNiKlIPGvYk0X+OrU8n5h6HSfqgNkf9wv7wrYCCQnP/sqVfbSZD 4cUq/NeaIYUKyfn/OVnKUkHCXMrp6uh9CwcoqghIvN dFVv7priEKv6cY5q0SQUW7uJiC7ZtzgIWnR+W8mODyI2/VHZ/VTGmGW7YxGgiMwvwlZFO8p3eJem57OU 4JQyF09AG++v/uSWN3Hh3usFv9ntEgiJC4pUbgnB7r2mH9HarjVhFKofL6y+h1Sa/p8i67LMLxL9K1xL 199ey10Ix8KRz2k+R2eE0lBTQy91k9RCKS42Z6iMb3 [file] DWZEmTDYefbe7/f3t/9f9vt/nw/motion study engineer/e0bpug94cLdk5erwb/2u3OMDrBNNjx4hodjfA+UKu7ayFmW7dc eoHoYzu3VxgK2zw7iiZhL8l/gBwGxkkR/rpIY/RJJI 2IsMFMQVEoqElZDdQRaK879hIqQ6RtRndFTmjW4Zzpffm8/KAhGPK0Kd3RL4LeHw9l5Sj15Jyok3HV12 i2GY7fywagomHSeQ07dD9dVbL9sSn6uSza/Xt/1uj1dVzsS8N3LZRPJyktAyGeIINRRE3ARrN/ajCNxC JT/X1mHDLSStNJOe4sbOIaEvLqdG2uNSKQVGyA1QAi Wq43lVFFtcNLSDXi9+TESBMRV5jzcQpbmc4+U8VPwSagQOyzwX1It9AAy8ClMpQSKvFOuPDG6YE32eut 3+akf7dFndV5pTAQO7DTHEfo7xqqJQxwK0j0R+aiMw/8sF3s3Jq3lTfBp6ylvLjPD4WBvWywqYge5AoO 985W0bbTvmJ06ODCFZkDY/41zGBu3V97F0666ak4me [file] welfare project manager/QkZVG7oozGL1X/F1+p08ZBB3+rtBZZ36TDkGHm [file] TNnGd9roALfbRWCErBR6pl+WRgcKYvUt113EXLc9Lj8/resource management planner/sPdeQVFFXbhgIwoqSZCclagkyTmJZKFB [file] 1c8rHsSwO7CKtrGggwcWV2w4tjXsq6ResnDzlH7mZwOqgMtbpozGbzHQ03yAVSqSqS2hhFLXD3sCY+motion study engineer NumdPOe+gtHpQ7DSk6ZiXu8xGFE1cOO3VGQoitMBZYFDOxkXwNqzEOW88IsncKJELCEwKVzl1Mlc5EvT i55jaLgpYq9hHfrmSk7IPQn8kmA8g/CNJpmmKzmgO5 ofq9pi7BGNgPlfRDOjqoqKwohN2Hrg3eGSj/2DI3M2hLQiGEO7jD3+Tsu3KwP6amwpbDcmlmlXYxjgZm s6xPH3xrauH8IinvVSyaOvuKW2pe9GCMsC+nY8SbpRZnDPEdHwEz2ptzYyCdDzaIYWoLsPm3ozJ3B4dI m8S0Sy8tTxQUn3V4P2q7xHF+D1CElB/938+BraIybO OIaBrHsHceIjbzsYbYyPMJjOFzFYmwO6olku1mtBqF01rRZj0qFRNL/vhU9uvVGSJtzKSQhgS1dJFV0s RJj3GKV5pwgm/xVFGHmdwoFmhyfNIIRsNu122gEJmkpava8j/N+ZvVfjXbI0yhT65L5H+AnbO+hPH7TQ Jessica/kq/GriGrv24oy+0IXDtEwSqH0fNCYk9w/lrF98 [file] retail salesworker/VIeDLcZ6+WqVJQqetAJIYptfvIrJLg7E5pTW4LSD5M+RWv6DyQ+vCijfxtXX1uNpsvmSPHRAhR/M7 [file] LCorMPCwmROsmRcirPJWas/mark+75cXeOefl4+0m/0OzE1C7p8w5AH2P6oandTWBwd/2rCp//ZCMaYeh veLPZ6ywr5Kyt4xk1sHz2gHBN0mRP/0ox6n81zbETa VhZV7gOzY9gPkrqwoZHwzs+uWf9UT5btaXzrspK/w3lKcAvO21tWy/dG5oXkv3P9fzPNYy2gP6pv+R2e EuerN2/1sW6BVUkvjZlu897ng/fiirWT4l0yZSS5nBOkkX++vHWerA2qnM5XPo/Ds9Usot1ruwEhABm7 O+LmX5tSggbyzKUOAAbYfXcnY6hUY5ejAP9uDKDNSz rRqN6uhQkm3+Jns2/an9ounFegyDSW9g7LJt4Ps5m5SLW85m9K8NlDwuJsfinrBPpy3Ea09G4Z4PmxDU 9d4bMQOneEwn8MWE0B3wiRqHAomWs5JHN/syroWm2WSWUoQK/zSBhHU1NGxPEha4942JkD61ZclH0RIF qb4vUfQ6mo+i+uG3xYFqjLZdTE8h1AMi9gMmAh8TqT VID2UXYtveiUpBKDKVZpFBoyhHwgW7xotp4WJ1VK16Y5CHYmn5fYDdr3VDn5hKaqmT0QEurj3MHJMFxh retail salesworker+uoxWjSYcBB7ASVQV+2EzeD1+glOuRc8bUgMgBVKi+eqfgDaKdUsOPFL7pt53GkWHvdbhk37P620WC [file] olIjvC3LTD6ta4XmCS4Zb6YzrlK0ooAbUEotXLD0VBj7VEvjWDSNOp== ID Date Data Source [id number] 03/23/2021 09:49:00 AM EDT [facility] ([facility]) Name Value Range Interpretation Code Description Data Dayanara rce(s) Supporting Document(s) Testosterone [Mass/volume] in Serum or Plasma 660 ng/dL 241-827 [facility] ([facility]) NORMAL RANGES ARE FOR ADULT FEMALES (OVE R 15 YRS) AND MALES (OVER 19 YRS). FOR PEDIATRIC RANGES PLE ASE CONSULT LITERATURE. Ammonia [Mass/volume] in Blood 20 uMOL/L [facility] ([facility]) ID Date Data Source [id number] 03/23/2021 09:48:00 AM EDT [facility] ([facility]) Name Value Range Interpretation Code Description Data Dayanara rce(s) Supporting Document(s) Thyroxine (T4) free [Mass/volume] in Serum or Plasma 0.77 ng/dL 0.76- 1.46 [facility] ([facility]) ID Date Data Source [id number] 03/23/2021 09:48:00 AM EDT [facility] ([facility]) Name Value Range Interpretation Code Description Data Dayanara rce(s) Supporting Document(s) Thyrotropin [Units/volume] in Serum or Plasma by Detec tion limit <= 0.05 mIU/L 2.39 uIU/mL 0.36-3.74 [facility] ([facility] ) ID Date Data Source [id number] 03/23/2021 09:48:00 AM EDT [facility] ([facility]) Name Value Range Interpretation Code Description Data Dayanara rce(s) Supporting Document(s) Triglyceride [Mass/volume] in Serum or Plasma 302 mg/dL 30-150 [facility] ([facility]) Cholesterol [Mass/volume] in Serum or Plasma 195 mg/dL 131-200 [facility] ([facility]) Cholesterol in HDL [Mass/volume] in Serum or Plasma 32 mg/dL 35-60 [facility] ([facility]) Cholesterol in LDL [Mass/volume] in Serum or Plasma by calcu lation 103 CALC 50-159 [facility] ([facility]) ID Date Data Source [id number] 03/23/2021 09:48:00 AM EDT [facility] ([facility]) Name Value Range Interpretation Code Description Data Dayanara rce(s) Supporting Document(s) Glucose [Mass/volume] in Serum or Plasma 100 mg/dL 74-99 [facility] ([facility]) 100-125 mg/dL PRE-DIABETES/FASTING >126 mg/dL DIABETES/FASTING Urea nitrogen [Mass/volume] in Serum or Plasma 12 mg/dL 7-18 [facility] ([facility]) Creatinine 1.2 mg/dL 0.6-1.3 [facility]) Potassium [Moles/volume] in Serum or Plasma 4.7 meq/L 3.5-5.1 [facility] ([facility]) Sodium [Moles/volume] in Serum or Plasma 138 meq/L 136-145 [facility] ([facility]) Chloride [Moles/volume] in Serum or Plasma 100 meq/L 98-107 [facility] ([facility]) Carbon dioxide, total [Moles/volume] in Serum or Plasma 31 meq/L 21 -32 [facility] ([facility]) Alkaline phosphatase isoenzyme [Units/volume] in Serum or Pl asma 63 mg/dL 46-116 [facility] ([facility]) Calcium [Mass/volume] in Serum or Plasma 9.1 mg/dL 8.5-10.1 [facility] ([facility]) Aspartate aminotransferase [Enzymatic activity/volume] in Serum or Plasma 24 U/L 15-37 [facility] ([facility] ) Total Bilirubin 0.5 mg/dL 0.2-1.0 [facility] ([facility]) Alanine aminotransferase [Enzymatic activity/volume] in Seru m or Plasma 76 U/L 12-78 [facility] ([facility]) Proteinase 3 Ab [Units/volume] in Serum 7.3 g/dL 6.4-8.2 [facility] ([facility]) Albumin [Mass/volume] in Serum or Plasma 4.4 g/dL 3.4-5.0 [facility] ([facility]) Glomerular filtration rate/1.73 sq M pre dicted among non-blacks [Volume Rate/Area] in Serum or Plasma by Creatinine-based formula (MDRD) Laboratory test result [facility] A/G Ratio 1.52 CALC 1.00-1.90 [facility] Glomerular filtration rate/1.73 sq M pre dicted among blacks [Volume Rate/Area] in Serum or Plasma by Creatinine-based formula (MDRD) Laboratory test result [facility] ([facility]) <content>CHRONIC KIDNEY DISEASE STAGING PER NKF</content>
<content></content>
<content>STAGE I & II GFR >= 60 NORMAL TO MILDLY DECREASED</content>
<content>STAGE III GFR 30-59 MODERATELY DECREASED</content>
<content>STAGE IV GFR 15-29 SEVERELY DECREASED</content>
<content>STAGE V GFR <15 VERY LITTLE GFR LEFT</content>
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
<content></content> ID Date Data Source [id number] 03/23/2021 09:48:00 AM EDT [facility] ([facility]) Name Value Range Interpretation Code Description Data Dayanara rce(s) Supporting Document(s) Erythrocytes [#/volume] in Blood by Automated count 6.11 x10*6/UL 4.2 0-6.30 [facility] ([facility]) Leukocytes [#/volume] in Blood by Automated count 6.7 x10*3/UL 4.1-10 .9 [facility] ([facility] Hematocrit [Volume Fraction] of Blood by Automated count 52.0 % 3 7.0-51.0 [facility] ([facility] Hemoglobin [Mass/volume] in Blood 17.5 g/dL 12.0-18.0 [facility] ([facility]) MCH 28.7 pg 26.0-32.0 [facility] ([facility]) MCV 85.1 fL 80.0-97.0 [facility] ([facility]) MCHC 33.7 g/dL 31.0-38.0 [facility] ([facility]) Erythrocyte distribution width [Ratio] by Automated count 13.1 % 11.6-13.7 [facility] ([facility] Platelets [#/volume] in Blood by Automated count 289 x10*3/UL 140-440 [facility] ([facility]) MPV 7.4 FL 7.8-11.0 [facility] ([facility]) Mid % 6.1 % 1.7-9.3 [facility] ([facility]) Lymph % 21.8 % 10.0-58.5 [facility] ([facility]) Neut % 72.1 % 37.0-92.0 [facility] ([facility]) Lymph # 1.4 x10*3/UL 0.6-4.1 [facility] ([facility]) Neut # 4.8 x10*3/UL 2.0-7.8 [facility] ([facility]) Mid # 0.5 x10*3/UL 0.1-0.6 [facility] ([facility]) ID Date Data Source [id number] 11/16/2020 08:11:00 AM EST [facility] ([facility]) Name Value Range Interpretation Code Description Data Dayanara rce(s) Supporting Document(s) Glucose [Mass/volume] in Serum or Plasma 91 mg/dL 74-99 [facility] ([facility]) 100-125 mg/dL PRE-DIABETES/FASTING >126 mg/dL DIABETES/FASTING Urea nitrogen [Mass/volume] in Serum or Plasma 16 mg/dL 7-18 [facility] ([facility]) Sodium [Moles/volume] in Serum or Plasma 142 meq/L 136-145 [facility] ([facility]) Creatinine 1.2 mg/dL 0.6-1.3 [facility] ([facility]) Potassium [Moles/volume] in Serum or Plasma 4.7 meq/L 3.5-5.1 [facility] ([facility]) Carbon dioxide, total [Moles/volume] in Serum or Plasma 28 meq/L 21 -32 [facility] ([facility]) Chloride [Moles/volume] in Serum or Plasma 103 meq/L 98-107 [facility] ([facility]) Calcium [Mass/volume] in Serum or Plasma 9.4 mg/dL 8.5-10.1 [facility] ([facility]) Alkaline phosphatase isoenzyme [Units/volume] in Serum or Pl asma 52 mg/dL 46-116 [facility] ([facility]) Aspartate aminotransferase [Enzymatic activity/volume] in Serum or Plasma 23 U/L 15-37 [facility] ([facility] Total Bilirubin 0.8 mg/dL 0.2-1.0 [facility] ([facility]) Alanine aminotransferase [Enzymatic activity/volume] in Seru m or Plasma 64 U/L 12-78 [facility] ([facility]) Proteinase 3 Ab [Units/volume] in Serum 7.1 g/dL 6.4-8.2 [facility] ([facility]) Albumin [Mass/volume] in Serum or Plasma 4.3 g/dL 3.4-5.0 [facility] ([facility]) Glomerular filtration rate/1.73 sq M pre dicted among non-blacks [Volume Rate/Area] in Serum or Plasma by Creatinine-based formula (MDRD) Laboratory test result [facility] ([facility] A/G Ratio 1.54 CALC 1.00-1.90 [facility] ([facility]) Glomerular filtration rate/1.73 sq M pre dicted among blacks [Volume Rate/Area] in Serum or Plasma by Creatinine-based formula (MDRD) Laboratory test result [facility] ([facility]) <content>CHRONIC KIDNEY DISEASE STAGING PER NKF</content>
<content></content>
<content>STAGE I & II GFR >= 60 NORMAL TO MILDLY DECREASED</content>
<content>STAGE III GFR 30-59 MODERATELY DECREASED</content>
<content>STAGE IV GFR 15-29 SEVERELY DECREASED</content>
<content>STAGE V GFR <15 VERY LITTLE GFR LEFT</content>
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
<content></content> ID Date Data Source [id number] 11/16/2020 08:11:00 AM EST [facility] Name Value Range Interpretation Code Description Data Dayanara rce(s) Supporting Document(s) Leukocytes [#/volume] in Blood by Automated count 5.2 x10*3/UL 4.1-10 .9 [facility] ([facility]) Erythrocytes [#/volume] in Blood by Automated count 5.44 x10*6/UL 4.2 0-6.30 [facility] Hemoglobin [Mass/volume] in Blood 16.8 g/dL 12.0-18.0 [facility] ([facility]) Hematocrit [Volume Fraction] of Blood by Automated count 47.3 % 3 7.0-51.0 [facility] ([facility]) MCV 86.9 fL 80.0-97.0 [facility] ([facility]) MCHC 35.6 g/dL 31.0-38.0 [facility] ([facility]) MCH 31.0 pg 26.0-32.0 [facility] Erythrocyte distribution width [Ratio] by Automated count 12.9 % 11.6-13.7 [facility] ([facility]) Platelets [#/volume] in Blood by Automated count 248 x10*3/UL 140-440 [facility] ([facility]) MPV 7.8 FL 7.8-11.0 [facility] ([facility]) Lymph % 20.8 % 10.0-58.5 [facility] ([facility]) Mid % 4.9 % 1.7-9.3 [facility] ([facility]) Lymph # 1.0 x10*3/UL 0.6-4.1 [facility] ([facility]) Neut % 74.3 % 37.0-92.0 [facility]) Mid # 0.4 x10*3/UL 0.1-0.6 [facility] ([facility]) Neut # 3.8 x10*3/UL 2.0-7.8 [facility] ([facility]) ID Date Data Source [id number] 11/05/2020 10:05:00 AM EST [facility] ([facility]) Name Value Range Interpretation Code Description Data Dayanara rce(s) Supporting Document(s) Laboratory test finding (navigational concept) Laboratory test result [facility] ([facility]) Test: COVID-19 Nasal/Naspharynx Result: NOT DETECTED Reference Units: Not detected Note: Please consider re-collection of a new specimen, if clinically indicated. Note: The COVID-19 assay is under Emergency Use Authorization(EUA) by the U.S. Food and Drug Administration. [employer] is designated as a high complexity laboratory by the Clinical Laboratory Improvement Amendments of 1988(CLIA) and is qualified to perform this test. ASSAY INFORMATION: Real Time RT-PCR ID Date Data Source [id number] 11/05/2020 12:00:00 AM EST [facility] Name Value Range Interpretation Code Description Data Dayanara rce(s) Supporting Document(s) 2019-nCoV RNA XXX MARYA+probe-Imp [place] This lab was ordered by [facility] and reported by [employer]. ID Date Data Source [id number] 10/24/2020 07:10:00 AM EST [facility] ([facility]) Name Value Range Interpretation Code Description Data Dayanara rce(s) Supporting Document(s) Laboratory test finding (navigational concept) Laboratory test result [facility] ([facility]) COMPREHENSIVE DRUG ANALYSIS,UR Test Result Flag Units Drug Present Norfluoxetine PRESENT Norfluoxetine is an expected metabolite of fluoxetine. Acetaminophen PRESENT Doxylamine PRESENT Dextrorphan/Levorphanol PRESENT Dextrorphan is an expected metabolite of dextromethorphan, an ljhs-qyg-zmlbwxl or prescription cough suppressant. Levorphanol is a scheduled prescription medication. Dextrorphan cannot be distinguished from levorphanol by the method used for analysis. Test Result Flag Units Ref Range Creatinine 147 mg/dL >=20 For clinical consultation, please call . Performed at: [employer] [address] [id number] [employer] [employer] Operator: Sidra Drummond, Phone: [phone] ID Date Data Source [id number] 10/24/2020 07:10:00 AM EST [facility] ([facility]) Name Value Range Interpretation Code Description Data Dayanara rce(s) Supporting Document(s) Laboratory test finding (navigational concept) Laboratory test result [facility] ([facility]) COMPREHENSIVE DRUG ANALYSIS,UR Test Result Flag Units Drug Present Norfluoxetine PRESENT Norfluoxetine is an expected metabolite of fluoxetine. Acetaminophen PRESENT Doxylamine PRESENT Dextrorphan/Levorphanol PRESENT Dextrorphan is an expected metabolite of dextromethorphan, an fomd-zhu-bzcftox or prescription cough suppressant. Levorphanol is a scheduled prescription medication. Dextrorphan cannot be distinguished from levorphanol by the method used for analysis. Test Result Flag Units Ref Range Creatinine 147 mg/dL >=20 For clinical consultation, please call . Performed at: [employer] [place] [address] [employer] Operator: Sidra Drummond, Phone: [phone] ID Date Data Source [id number] 09/04/2020 07:49:00 AM EDT [facility] ([facility]) Name Value Range Interpretation Code Description Data Dayanara rce(s) Supporting Document(s) Thyroxine (T4) free [Mass/volume] in Serum or Plasma 0.87 ng/dL 0.76- 1.46 [facility] ([facility]) ID Date Data Source [id number] 09/04/2020 07:48:00 AM EDT [facility] ([facility]) Name Value Range Interpretation Code Description Data Dayanara rce(s) Supporting Document(s) Thyrotropin [Units/volume] in Serum or Plasma by Detec tion limit <= 0.05 mIU/L 2.85 uIU/mL 0.36-3.74 [facility] ([facility] ) ID Date Data Source [id number] 09/04/2020 07:48:00 AM EDT [facility] ([facility]) Name Value Range Interpretation Code Description Data Dayanara rce(s) Supporting Document(s) Cholesterol [Mass/volume] in Serum or Plasma 198 mg/dL 131-200 [facility] ([facility]) Triglyceride [Mass/volume] in Serum or Plasma 199 mg/dL 30-150 [facility] ([facility]) Cholesterol in HDL [Mass/volume] in Serum or Plasma 39 mg/dL 35-60 [facility] ([facility]) Cholesterol in LDL [Mass/volume] in Serum or Plasma by calcu lation 119 CALC 50-159 [facility] ([facility]) ID Date Data Source [id number] 09/04/2020 07:48:00 AM EDT [facility] ([facility]) Name Value Range Interpretation Code Description Data Dayanara rce(s) Supporting Document(s) Glucose [Mass/volume] in Serum or Plasma 96 mg/dL 74-99 [facility] ([facility]) 100-125 mg/dL PRE-DIABETES/FASTING >126 mg/dL DIABETES/FASTING Creatinine 1.3 mg/dL 0.6-1.3 [facility] ([facility]) Urea nitrogen [Mass/volume] in Serum or Plasma 16 mg/dL 7-18 [facility] ([facility]) Sodium [Moles/volume] in Serum or Plasma 141 meq/L 136-145 [facility] ([facility]) Potassium [Moles/volume] in Serum or Plasma 4.2 meq/L 3.5-5.1 [facility] ([facility]) Carbon dioxide, total [Moles/volume] in Serum or Plasma 28 meq/L 21 -32 [facility] ([facility]) Calcium [Mass/volume] in Serum or Plasma 9.1 mg/dL 8.5-10.1 [facility] ([facility]) Chloride [Moles/volume] in Serum or Plasma 102 meq/L 98-107 [facility] ([facility]) Aspartate aminotransferase [Enzymatic activity/volume] in Serum or Plasma 35 U/L 15-37 [facility] ([facility] ) Alkaline phosphatase isoenzyme [Units/volume] in Serum or Pl asma 51 mg/dL 46-116 [facility] ([facility]) Total Bilirubin 0.6 mg/dL 0.2-1.0 [facility] ([facility]) Albumin [Mass/volume] in Serum or Plasma 4.2 g/dL 3.4-5.0 [facility] ([facility]) Alanine aminotransferase [Enzymatic activity/volume] in Seru m or Plasma 104 U/L 12-78 [facility] ([facility]) NOTE: RESULT VERIFIED. Proteinase 3 Ab [Units/volume] in Serum 7.0 g/dL 6.4-8.2 [facility] ([facility] A/G Ratio 1.50 CALC 1.00-1.90 [facility] ([facility]) Glomerular filtration rate/1.73 sq M pre dicted among non-blacks [Volume Rate/Area] in Serum or Plasma by Creatinine-based formula (MDRD) 58 mL/min [facility] ([facility] Glomerular filtration rate/1.73 sq M pre dicted among blacks [Volume Rate/Area] in Serum or Plasma by Creatinine-based formula (MDRD) Laboratory test result [facility] ([facility]) <content>CHRONIC KIDNEY DISEASE STAGING PER NKF</content>
<content></content>
<content>STAGE I & II GFR >= 60 NORMAL TO MILDLY DECREASED</content>
<content>STAGE III GFR 30-59 MODERATELY DECREASED</content>
<content>STAGE IV GFR 15-29 SEVERELY DECREASED</content>
<content>STAGE V GFR <15 VERY LITTLE GFR LEFT</content>
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
<content></content> ID Date Data Source [id number] 09/04/2020 07:48:00 AM EDT [facility] ([facility] Name Value Range Interpretation Code Description Data Dayanara rce(s) Supporting Document(s) Hemoglobin [Mass/volume] in Blood 17.5 g/dL 12.0-18.0 [facility] ([facility] Leukocytes [#/volume] in Blood by Automated count 4.8 x10*3/UL 4.1-10 .9 [facility] ([facility] Erythrocytes [#/volume] in Blood by Automated count 5.87 x10*6/UL 4.2 0-6.30 [facility] ([facility] Hematocrit [Volume Fraction] of Blood by Automated count 49.6 % 3 7.0-51.0 [facility] ([facility] MCV 84.5 fL 80.0-97.0 [facility] ([facility]) MCH 29.8 pg 26.0-32.0 [facility] ([facility]) MCHC 35.3 g/dL 31.0-38.0 [facility] ([facility]) Platelets [#/volume] in Blood by Automated count 243 x10*3/UL 140-440 [facility] ([facility]) MPV 7.6 FL 7.8-11.0 [facility] ([facility]) Erythrocyte distribution width [Ratio] by Automated count 12.4 % 11.6-13.7 [facility] ([facility]) Neut % 67.3 % 37.0-92.0 [facility] ([facility]) Mid % 6.4 % 1.7-9.3 [facility] ([facility]) Lymph % 26.3 % 10.0-58.5 [facility] ([facility]) Lymph # 1.2 x10*3/UL 0.6-4.1 [facility] ([facility]) Neut # 3.2 x10*3/UL 2.0-7.8 [facility] ([facility]) Mid # 0.4 x10*3/UL 0.1-0.6 [facility] ([facility]) Procedure Social History No Information Vital Signs ID Date Data Source UNK Name Value Range Interpretation Code Description Data Source(s) Systolic blood pressure 122 mm[Hg] 122 mm[facility]Hg] [facility] Diastolic blood pressure 80 mm[Hg] 80 mm[Hg] [facility] ([facility]) Heart rate 64 /min 64 /min [facility] ([facility]) Body height 66 [in_i] 66 [in_i] [facility] ([facility]) 5'6" Body mass index (BMI) [Ratio] 30.7 kg/m2 30.7 k g/m2 [facility] ([facility]) Body weight 190.00 [lb_av] 190.00 [lb_av] [facility] T ([facility]) Systolic blood pressure 120 mm[Hg] 120 mm[Hg] [facility] Body mass index (BMI) [Ratio] 31.5 kg/m2 31.5 k g/m2 [facility] ([facility]) Diastolic blood pressure 70 mm[Hg] 70 mm[Hg] [facility] ([facility]) Heart rate 68 /min 68 /min [facility] ([facility]) Body height 66 [in_i] 66 [in_i] [facility] ([facility]) 5'6" Body weight 195.00 [lb_av] 195.00 [lb_av] [facility] T ([facility]) Systolic blood pressure 118 mm[Hg] 118 mm[Hg] M [facility] ([facility]) Diastolic blood pressure 76 mm[Hg] 76 mm[Hg] [facility] ([facility]) Heart rate 72 /min 72 /min [facility] Body height 66 [in_i] 66 [in_i] [facility] ([facility]) 5'6" Body weight 184.00 [lb_av] 184.00 [lb_av] [facility] T ([facility]) Body mass index (BMI) [Ratio] 29.7 kg/m2 29.7 k g/m2 [facility] ([facility]) Body weight 182.00 [lb_av] 182.00 [lb_av] [facility] T ([facility]) Systolic blood pressure 122 mm[Hg] 122 mm[Hg] [facility] Diastolic blood pressure 90 mm[Hg] 90 mm[Hg] [facility] Heart rate 92 /min 92 /min [facility] ([facility]) Body height 66 [in_i] 66 [in_i] [facility] ([facility]) 5'6" Body mass index (BMI) [Ratio] 29.4 kg/m2 29.4 k g/m2 [facility]
[2021-10-20] MEDS ORDERED: METH36TA5 (12:34)
[2021-10-20] MEDS ORDERED: PARO30TA4 (12:34)
[2021-10-20] MEDS ORDERED: CLON0.5T2 (12:34)
[2021-10-20] MEDS ORDERED: MIRT1TAB (12:34)
--- NOTE | 2021-10-20 13:40 | REP ---
INDICATION: Syncope/near-syncope COMPARISON: 01/31/2019 TECHNIQUE: Portable AP view of the chest FINDINGS: The mediastinum and cardiac silhouette are stable and within normal limits for portable technique. The lung sky are clear without acute consolidation, effusion, or pneumothorax. Skeletal structures are intact. IMPRESSION: No acute cardiopulmonary process appreciated. <Electronically signed by Rashard Luciano > 10/20/21 [id number]
[2021-10-20 13:41] LABS: BASO # 0.1 10^3/uL (0.0-0.2); BASO % 0.8 % (0.0-1.0); EOS # 0.1 10^3/uL (0.0-0.5); EOS % 1.9 % (0.0-3.0); HEMOGLOBIN 16.6 g/dl (13.5-17.5); LYMPH # 1.6 10^3/uL (1.5-5.0); LYMPH % 25.4 % (24.0-44.0); MEAN CORPUSCULAR HEMOGLOBIN 29.8 pg (27.0-33.0); MEAN CORPUSCULAR HGB CONC 34.6 g/dl (32.0-36.5); MEAN CORPUSCULAR VOLUME 86.2 fl (80.0-96.0); MONO # 0.4 10^3/uL (0.0-0.8); MONO % 6.2 % (2.0-8.0); NEUTROPHILS # 4.2 10^3/uL (1.5-8.5); NEUTROPHILS % 65.2 % (36.0-66.0); PLATELET COUNT, AUTOMATED 293 10^3/uL (150-450); RED BLOOD COUNT 5.57 10^6/uL (4.30-6.10); WHITE BLOOD COUNT 6.4 10^3/uL (4.0-10.0)
[2021-10-20 14:19] LABS: BLOOD UREA NITROGEN 13 MG/DL (7-18); CALCIUM LEVEL 9.3 MG/DL (8.5-10.1); CARBON DIOXIDE LEVEL 27 MEQ/L (21-32); CHLORIDE LEVEL 106 MEQ/L (98-107); CREATININE FOR GFR 1.18 MG/DL (0.70-1.30); FREE T4 0.72 NG/DL (0.76-1.46); GLOMERULAR FILTRATION RATE > 60.0 (>56); GLUCOSE, FASTING 85 MG/DL (70-100); MAGNESIUM LEVEL 2.4 MG/DL (1.8-2.4); POTASSIUM SERUM 4.1 MEQ/L (3.5-5.1); SODIUM LEVEL 139 MEQ/L (136-145)
--- OUTSIDE RECORDS SUMMARY | 2021-10-20 14:21 | CCD ---
Author Author [facility] Organization [facility] Address Unknown Phone Unavailable Care Team Providers Care Hvac Commercial Salesperson Name Role Phone Rosa MONTGOMERY MD Unavailable [...] C Tashia PASTRANA Unavailable Unavailable ULISES, C Tasiha PASTRANA Unavailable Unavailable ULISES, C Tashia PASTRANA Unavailable Unavailable ULISES, C Tashia PASTRANA Unavailable Unavailable ULISES, C Tashia PASTRANA Unavailable Unavailable ULISES, C Tashia PASTRANA Unavailable Unavailable ULISES, C Tashia PASTRANA Unavailable Unavailable ULISES, Rosa Lao MD Unavailable Unavailable ULISES, Rosa Lao MD Unavailable Unavailable ULISES, Rosa Lao MD Unavailable Unavailable ULISES, C Tashia PASTRANA Unavailable Unavailable ULISSE, C Tashia PASTRANA Unavailable Unavailable ULISES, Rosa [...] Unavailable Cynthia Caraballo MD Unavailable Unavailable Cynthia Carabalol MD Unavailable Unavailable Cynthia Caraballo MD Unavailable [...] Unavailable Cynthia Caraballo MD Unavailable Unavailable Cynthia Caarballo MD Unavailable Unavailable Cynthia Caraballo MD Unavailable [...] Cynthia Caraballo MD Unavailable Unavailable VanDewall, R Wichita DO Unavailable Unavailable VanDewall, R Wichita DO Unavailable Unavailable VanDewall, R Wichita DO Unavailable Unavailable VanDewall, R Silvia DO Unavailable Unavailable VanDewall, R Silvia DO Unavailable Unavailable VanDewall, R Wichita DO Unavailable Unavailable VanDewall, R Silvia DO Unavailable Unavailable VanDewall, R Silvia DO Unavailable Unavailable VanDewall, R Wichita DO Unavailable Unavailable VanDewall, R Wichita DO Unavailable Unavailable VanDewall, R Silvia DO Unavailable Unavailable VanDewall, R Silvia DO Unavailable Unavailable VanDewall, R Silvia DO Unavailable Unavailable VanDewall, R Wichita DO Unavailable Unavailable VanDewall, R Silvia DO Unavailable Unavailable VanDewall, R Wichita DO Unavailable Unavailable VanDewall, R Silvia DO Unavailable Unavailable VanDewall, R Silvia DO Unavailable Unavailable VanDewall, R Wichita DO Unavailable Unavailable VanDewall, R Wichita DO Unavailable Unavailable VanDewall, R Wichita DO Unavailable Unavailable VanDewall, R Silvia DO Unavailable Unavailable VanDewall, R Wichita DO Unavailable Unavailable VanDewall, R Silvia DO Unavailable Unavailable VanDewall, R Wichita DO Unavailable Unavailable VanDewall, R Wichita DO Unavailable Unavailable VanDewall, R Wichita DO Unavailable Unavailable VanDewall, R Silvia DO Unavailable Unavailable VanDewall, R Wichita DO Unavailable Unavailable VanDewall, R Silvia DO Unavailable Unavailable VanDewall, R Silvia DO Unavailable Unavailable VanDewall, R Silvia DO Unavailable Unavailable VanDewall, R Silvia DO Unavailable Unavailable VanDewall, R Wichita DO Unavailable Unavailable VanDewall, R Silvia DO Unavailable Unavailable VanDewall, R Wichita DO Unavailable Unavailable VanDewall, R Wichita DO Unavailable Unavailable VanDewall, R Silvia DO Unavailable Unavailable VanDewall, R Wichita DO Unavailable Unavailable VanDewall, R Silvia DO Unavailable Unavailable VanDewall, R Silvia DO Unavailable Unavailable VanDewall, R Silvia DO Unavailable Unavailable VanDewall, R Silvia DO Unavailable Unavailable VanDewall, R Wichita DO Unavailable Unavailable VanDewall, R Silvia DO Unavailable Unavailable VanDewall, R Wichita DO Unavailable Unavailable VanDewall, R Wichita DO Unavailable Unavailable VanDewall, R Silvia DO Unavailable Unavailable VanDewall, R Wichita DO Unavailable Unavailable VanDewall, R Silvia DO Unavailable Unavailable VanDewall, R Silvia DO Unavailable Unavailable VanDewall, R Wichita DO Unavailable Unavailable Ali, Hui PASTRANA Unavailable [...] is protected by Article 27-F of the [facility] Public Health law. If you continue you may have access to information: Regarding HIV / AIDS; Provided by facilities licensed or operated by the [facility] Office of Mental Health; or Provided by the [facility] Office for People With Developmental Disabilities. If such information is present, then the following [facility] mandated warning applies: This information [...] law may result in a fine or fpc sentence or both. A general authorization for the release of medical or other information is NOT sufficient authorization for further disc losure. Allergies and Adverse Reactions Type Description Substance Reaction Status Data Source(s ) Propensity to adverse reactions NO KNOWN ALLERGIES NO KNOWN ALLERGIES [facility] Family History Family Member Name Family Member Gender Family Member Status Date o f Status Description Data Source(s) Unknown Male Problem [facility] ([facility]) Encounters Encounter Providers Location Date Indications [...] Liam Lucas 07/31 02:30:00 PM EDT [facility] ([facility] ) Outpatient Attender: Hui Alston MD Main office - [place] 07/26/2021 02:15:00 PM EDT [facility] ([facility] ) Attender: Nik Daniel: Hui Alston MD 06/25/2021 08:21:07 PM EDT [facility] Attender: Nik Dyerr: Hui Alston MD 06/25/2021 08:21:07 PM EDT [facility] Attender: Nik Daniel: Hui Alston MD 06/15/2021 08:21:07 PM EDT [facility] Attender: Nik Daniel: Hui Alstno MD 06/13/2021 08:21:07 PM EDT [facility] Attender: Nik Waltonferrer: [place]ichita Danie felix DO 05/18/2021 08:21:06 PM EDT [facility] Outpatient Attender: Hui Alston MD Main office - [place] 05/15/2021 02:30:00 PM EDT [facility] ([facility]) Outpatient Attender: Liam Lucas 03/26 02:00:00 PM EDT [facility] ([facility] ) Outpatient Attender: Hui Alston MD Main office - [place] 02/01/2021 12:45:00 PM EST [facility] ([facility]) Outpatient Attender: Tashia MONTGOMERY MD 12/15/2020 12:00:00 AM [facility] Outpatient Attender: Liam Lucas 11/17 01:30:00 PM EST [facility] ([facility] ) Outpatient Attender: Hui Alston MD Main office - [place] 11/02/2020 10:00:00 AM EST [facility] ([facility]) Outpatient Attender: Liam Lucas 08/31 11:30:00 AM EDT [facility] ([facility] ) Immunizations Vaccine Date Status Description Data Source(s) COVID-19 VACCINE Moderna 10/05/2021 12:00:00 AM EDT completed [facility] Vaccine Series Complete: YESThis Data wa s Submitted to [facility] Via [employer]. COVID-19 VACCINE Moderna 03/13/2021 12:00:00 AM EDT completed [facility] Vaccine Series Complete: YESThis Data wa s Submitted to [facility] Via [employer]. COVID-19 VACCINE Moderna 02/13/2021 12:00:00 AM EDT completed [facility] Vaccine Series Complete: NOThis Data was Submitted to [facility] Via [employer]. INFLUENZA VIRUS VACCINE QUADRIVAL [id number](6 MOS AND UP)/PF 08/29/2020 12:00:00 AM EDT [...] EVERY DAY AT NIGHT SOLD: 10/05/2021 [facility] ([facility]) Paroxetine Hydrochloride 30 MG Oral Tablet PAROXETINE [...] 0 INJECT DIRECTED INJECT DIRECTED SOLD: 09/28/2021 Venaxis onabotulinumtoxinA 200 UNT/ML Injectable Solution [Botox] Jorge tox 09/14/2021 12:00:00 AM EDT active Ron ANDERSEN ([facility]) 7.5 mg 09/12/2021 12:00:00 AM EDT tablet 30 TAKE ONE TABLET BY MOUTH IN THE EVENING TAKE ONE TABLET BY MOUTH IN THE EVENING SOLD: 09/17/2021 [facility] ([facility]CD[facility]) Paroxetine Hydrochloride 30 MG Oral Tablet PAROXETINE [...] 12:00:00 AM EDT ORAL active [facility] ([facility] No Active Medications 07/26/2021 12:00:00 AM EDT completed [facility] ([facility]) 0.5 mg 07/24/2021 12:00:00 AM [...] Ajovy 05/15/2021 12:00:00 AM EDT completed [facility] ([facility]) 10 mg 05/15/2021 12:00:00 AM [...] 05/15/2021 12:00:00 AM EDT ORAL completed [facility] ([facility]) 7.5 mg 05/15/2021 12:00:00 AM [...] Ketoconazole 03/26/2021 12:00:00 AM EDT active [facility] ([facility]) 10 mg 03/07/2021 12:00:00 AM EDT [...] 03/07/2021 12:00:00 AM EDT ORAL completed [facility] ([facility] 36 mg 02/28/2021 12:00:00 AM [...] Paxil 08/31/2020 12:00:00 AM EDT completed [facility] ([facility]) HM Honeydew-3-6-9 Fatty Acids 08/31/2020 12:00:00 AM EDT active [facility] ([facility]) Aspirin 81 MG Delayed Release Oral Tablet Aspirin 81 2019 12:00:00 AM EDT ORAL active [facility] ( [facility]) 1,250 mcg (50,000 unit) 08/14/2020 12:00:00 [...] 05/16/2020 12:00:00 AM EDT ORAL completed [facility] ([facility]) 0.05 % 02/07/2020 12:00:00 AM EDT dropperette 180 INSTILL 1 DROP INTO BOTH EYES TWO TIMES A DAY DIRECTED INSTILL 1 DROP INTO BOTH EYES TWO TIMES A DAY DIRECTED SOLD: 10/14/2020 [facility] Insurance Providers Payer name Policy type / Coverage type Policy ID Covered democrat ID Covered democrat's relationship to campos Policy Campos Plan Information [facility] Medigap Part B [id number] Self [id number] [facility] Commercial [id number] Self 802 [facility] Commercial [id number] Self [id number] EXCELLUS H [id number] Self [id number] BS [place] Trad/MX Commercial [id number] Self [id number] [place] 302/307 [id number] SP [id number] [place] PPO 302/307 [id number] SP [id number] [place] PPO 302/307 [id number] SP [id number] EXCELLUS H [id number] Self [id number] EXCELLUS BCBS [id number] Rajwinder YND [id number] EXCELLUS BCBS [id number] Rajwinder YND [id number] [facility] [place] Medigap Part B [id number] [facility] [employer] Medigap Part B [id number] [facility] [employer] Medigap Part B [id number] [facility] [employer] Medigap Part B [id number] [facility] [employer] Medigap Part B [id number] [facility] [employer] Medigap Part B [id number] Self [facility] [place] Medigap Part B [id number] Self [id number] SELF PAY ONLY [id number] SP [id number] [facility] [id number] SELF PAY [id number] SP [id number] EXCELLUS BCBS P [id number] S VYS [id number] [facility] [id number] [facility] [id number] Problems, Conditions, and Diagnoses Code Display Name Description Problem Type Effective Dates Data Source(s) R53.83 Malaise and fatigue Malaise and fatigue Problem 1 01/03/2020 12:00:00 AM EST [facility] ([facility] ) Surgeries/Procedures Procedure Description Date Indications Data Source(s) CHEMODNRVTJ MUSC MUSC INNERVATED FACIAL NRV 10/03/2021 12:00:00 AM EDT [facility] ([facility] ) OFFICE OUTPATIENT VISIT 25 MINUTES 07/31/2021 12:00:00 AM EDT [facility] ([facility]) Colonoscopy 07/30/2021 12:00:00 AM EDT M [facility]ENT ([facility]) OFFICE OUTPATIENT VISIT 40 MINUTES 07/26/2021 12:00:00 AM EDT [facility] ([facility] ) OFFICE OUTPATIENT VISIT 25 MINUTES 05/15/2021 12:00:00 AM EDT [facility] ([facility], ) ECG ROUTINE ECG W/LEAST 12 LDS W/I&R 03/26/2021 12:00: 00 AM EDT [facility] ([facility]) OFFICE OUTPATIENT VISIT 25 MINUTES 03/26/2021 12:00:00 AM EDT [facility] ([facility]) OFFICE OUTPATIENT VISIT 25 MINUTES 02/01/2021 12:00:00 AM EST [facility] ([facility] ) Results ID Date Data Source [id number] 07/30/2021 09:00:00 AM EDT [facility] Name Value Range Interpretation Code Description Data Dayanara rce(s) Supporting Document(s) Colonoscopy [facility] WFNLMt2rJqXGKkBeKBXlJhbGCJedBTahOSQtT9F6ZMuuAx2LILvwdtRzASXcKp1+EBVdFM1rot0rIYWv gMy [file] Y17OOwV0Ww6hhyMgsTd30l5xX36u122s/hK/XYvxC+A4GpVVjVi4vv+GONZÁLEZ/H+2vD6cZvFjrnNU85w9OJ [file] I34W/qX4tDnVnRe9OcmotRq/uPgG2V/99b/W6S0cPt4QCvc+Sji412o9w7i0SoLK1l8El3P/Afy+STEAMFITTER SUPERVISOR/4 [file] M0x2QcxMVR7KXC2PlQ1S0LPEWM2dDemMML0+73V4cKQzw/0qnu+juan diego/kz2cvWAyAD03AzOSMBp3wtnvd [file] kCRMZkFwYsGIJ9IQHgQy5ueBAqFN4QVgYFMSEQVRIEUEXHYBMZVXQ8RCLYWYXwQDMCXRDzKIPKMGTMYG QRBasQPSXCOnwAFTOHHiuUQOREEjd1WBXAHoaMIR8SET8xr7ZkJJOwQPuhyuHcRplLKDwcsQMpmKmfJJ FGXxX3CuC0DP5WDWZUS8O= ID Date Data Source [id number] 06/13/2021 11:00:00 AM EDT [facility] Name Value Range Interpretation Code Description Data Dayanara rce(s) Supporting Document(s) Follow Up [facility] QMJZKh8dKjIEIzGuLCWmKyeGGYdgOAewSNFkL0J7NPndOl0CLChrxnEcMQRvTk2+GOUpOM8xly2xWFIf gMy [file] O6iSE6rCy/PzRl8D9Y3tStQJgfp7AKKlgCNSA/georgian/eUhEh+GRISELDA+LT+5SM9exXFV1Z9ivXN/JWIcZ+lee ann [file] Vrr6xAngb8Zfy6it1j/power builder developer/H3+5soL5d5+eMds+oMh9TSI9xO/PVczmvkHp8FT+n3fnoRRXLmi4HcIxV [file] pilot manager/tN3ETJAEehjLEqjhmwEMdr7pONsondXPTltADSrd0qh4G8qUcdfYJOej9kcwb686XGp5+mVeAy+e [file] jqR+Welding Machine Operator Electron Beam+D4Cuw53qzCjv1IXhd2VbIIkPR+cvdaCAPVnjSn18b1L6izhJcnK3kZDv6EClf9rDHKvnyNUaM [file] KbRvbHFPKmgQxJIqcSL9UDisTZfZPHMHS66jWgbYb1op8/5dK64oafAktuLbrOaA8NtZ+cloIvO9/+wheat shipper z0efi/8wp+s82aq7dLYUbYPck4jHDptPZEsFcq+Hp/JwpZZrYEWc8PvbH6M3WcJdc/Z8vSa+eiFTKPey 4KPLXRkgbNa5lALYudEL8mwO4K/DeGgCx/CUHg72sU iB/nywxhR/mt8c6s4kJU7jKyTUg0w3ncM+eEyXlSCkQGJRS/vxUdlbf9lGSDHrhGmMkyxcR8j1QNbAS7 trd7oeMvmDrrUvuyPTuXSEdNyMkepCnwCFCKMil0k1CJOa3YnrtY5L74lU+Bo7eUKYevt1x/E3w+A4cg WQ+AQnioWMPxDOBj1y5iHxTyG+3GNPzuFUlMOl5W2n lWr+rtY3ET5kvZJU5o0kpDBLoP4rtAxp3FgwZSn1rLCx1ZA9UnzQrQIqjAmnRl0gv8Py5TPFty5ycSgp WR00vTxrxs0iI8qqcejIo93HLB9WuodoUl5TFI6gmvDDu3J176bs+QjA1rS1M5sKhC9rmvLtYmuQKHIK iVcSozGWkDgXiV6CtvOBbtW4q3c9GMvUMnJRNJrkmu IMZxyWvg6OVikmEiFeuNAzB7jR/fXUwC381XAwtGsZJVqXjR61X/1izbJ/MuznncJbpqL4UJR3oo2226 dG32Gs3ElgzfZgDLEuyK/RXZGajo/FtRLebx4KqsgxEF8zyyx5N9XDHFNkKG8VohAjVhnxhu4KuAPf5n 88Bszi0u6T9C0t25yV/50hwV5ub1/+DSj5f6EvS27F [file] MQUMB4fs+xINRi5/EP5Gp4esquo+rQ1oZRdHK6/personnel counselor [file] aXY58a3wNtlVzgrVoPGHnx/Uq1czlOYoJOn3vN// hFKot6XdjKATylR7T6CrdXGCgGsGL7cfNxnkS0efluA1Y/4fwZOkWepzJrIYJNo99hKdSxjPyEutEfXu HSgqgrtTQMju1MMrdhczYTpyDC6P+9qL12zw1n1e24rHpF4dpor50GsKL17ukqsKCk9RwAT7lWBe+P0h zfs1huzs74lZlsSUlej3IHKPmoqbonCWjeLujIDH8h cAuterbXeIgPfi74kVjpfi3BvzzTfVTKh+nRzceVqxLuI8wrf/22ZdhjL+vvmxYyComfgBpOg3jvcCEO H0NWnW/voFqH6/4E5jms/mhaFWonzjR3GMGeUzIfzJuSaf2x0wAw8KofmNP1esgiNM+Q16HIoxZtWRcD [employer]+whbUFsfggKaAtdcw3kRZKgnU3nTOi2XSBjBQbR [file] 2X+aTI0y5+PWjVZZQ2HL2ihW42ifso7w4Dp0X0DkFR0XIKdwasC+AjgAjhv+INTERACTIVE DESIGNER+JPUPtQpvyzxLme5Qu [file] ot+xxi+KCw9AO3lf7vExY4S3HheNw4kxAEdRbbimw0Mo7q41GLrysqnP8CUeqw7F3awjbJr/jT/p+Maria Esther fJs2MsS6quiNfnBZLya+H9xYYQp8i2qxCQQYQv/EKF s0jSU5hgbiejbxrRBHTA59yRDsSEDdMG9F0H2FiiNO+xyiRS1yeS4xujiIr9LQ6dwR2zqcvqq9wV/0qb MnMItLBhWzCdIH07XNLgR6fGNyleYcWuScQYDbZh2T+NvD3h7k9YAizhZkx4wt3toNNRApV/sqVfbSZD 4cUq/NeaIYUKyfn/NTqTVmSQCWkh8ec2YhqcyidDuH kCPh4vkdXRs5bR3q3XJIF5gXlT4KploVLzU+R9iFPzJ6/VHZ/ANPzEJ1KwAneKwahbXGD6o3sCgv37TP 3FCaP84JQ++v/bORK8Cx3rqNq2hxVxgAT4lOwirK9a2iJ9CsrdXgFLbgF1w+h1Sa/q9p39UQXeU8L0qU 079xn64Wy1FAk6n+C6bG8zDPPn68v1EGXS95J5dBg2 [file] cjN0wEt0RLm+STEAMFITTER SUPERVISOR/CyVbhlVLMmwY9m7LrCAKyoiZa8L [file] DWZEmTDYefbe7/f3t/9f9vt/nw/wheat shipper/y5yexh40oBym4udwm/9o7JMImRSYsk2oppnyK+WVm0hlYzS8vh wxDoQhm6BfzY2pr4yxGkP2b/gBwGxkkR/rpIY/RJJI 7RrWJHNUNvhWwFHuBZiA412bKdB9UhCmtFYxjE8Uidmrg0/UBvZSY4Ql8RG4KlHe1g7Ut30Ydjt9UO64 q6MY6ehhfkfaZWtD74tX3lHoW8kSb9vOto/Xt/9jx3xMfqH1Z2TZFEIfflBaBkMTNHBW5DZhV/ajCNxC JT/U3xNJNXIxEBDw5wtKNbZcYsnH9cQWNAZOaO8IJa Wo21cZGIbtTUQYEm9+GJLIYWK9mreUrshb7+Y9JSdDpcYJmrwW3Sf6AGr5YeDsPUTzUYzCSI6RD82aqf 3+jgh3lZkuR9kQZEJ5NWRMgf3anpKRlhK8o5T+aiMw/1sA1v7Oq5oCiNt2hluLzED5ZHdSanwYvc4GlO 869W3egPdvQ68TXWKZxSY/36yVTj1N50K9073vo1cv [file] nurse transition/LoGPH4vyrCQ9K/F1+r25KBT2+jfROI61ESwFUz [file] QClEe9xwUJkqLUEFcGA6qs+CMgxNCaHw314QSXg3Kg4/oil change technician/sPdeQVFFXbhgIwoqSZCclagkyTmJZKFB [file] 6i2sZoCdR1LMpmDlictKS8s0qvWle8SwcdAsyJ7xNiRtdGrallzXslIZ51oJJKnKiW8ahIOQF2aJE+wheat shipper NumdPOe+gfYfD0QDj9CaCe4kMJM2lKF2QZYwpwRDOFXNVgmMnTawSNR57BaiaWTYEBWoBUax3Hdq0OiC w13dxMozDo5bJkgkMu8EISh6slJ6a/CNJpmmKzmgO5 xdx4qh3MHGgWmhOWRzqjfFyqqI4Jvg0yNBh/5PM9J6uDDnFSU9tW1+Muh3HzA8amzxxWrfxmeEPhvrLa w5gOM4dohrD5PwawEKebOmbQF5xp9ICHsX+tS5XcjVIwJDFeGlPt2gayKhQfOytWIEoNwTr5naP4K2tM v9G0Aq0cTkWBk4A4T2l1wEW+D1CElB/938+BraIybO LEvTyXrXdqLyjqaIzVdUSYaBMzXQidL4nhyz0apNkX63nHTe2uSICC/tuK9ebXCAMxzXXRkzJ4xAGM0j OZq0IFT9nepa/nHESVosyjHdbwbSCENrVr624jWYytzopj8x/N+DsVqfVtJ1yuZ73X1E+AnbO+hPH7TQ Jessica/kq/TrwLwm38ks+9RBEjSjBdV4pUSBq4u/lrF98 [file] farm machinery mechanic/VIeDLcZ6+XcJYZpyoBAKQwhykPvGCi0X8oGN0AQT3F+DUu9BjG+gKutbndXR1iWnrqhIYMIFxO/M7 [file] LCorMPCwmROsmRcirPJWas/mark+41uXoRwkl6+0m/5JmV3R5q5y8YR5D9ooqcWBGnx/2rCp//ZCMaYeh wgPFQ5vuy7Hni2ln7sHh8wLPL9oJJ/0lv6c56jlIPx HeRD7kQoF1fGpommwUOxhk+dFv0SY2clxKylgxI/s7yGkRcH26kWr/uD5gFuk0P2voGJTg1kI3ep+R2e EuerN2/9cI0NGCqppByf087ej/mimySF1v0pKEW9pMFpoM++iGSwpC9coC2INt/Tb7Xbme6pkrCiSEn2 O+BgK0dTenatiICMMTuRxYvuY3zDL9pbHT0wLNRCId fGhU8sjXfa4+Jns2/fz4jiyRzzuDKC6j9KGh3Qa2n3LUD45p2V1LoWmiZlgtxbSMrt2Ks59H9K7BvtPF 0q6yABKsjMsn7HQM9G3vxXpEScpSr2KXJ/yvraRg6ZDTXqFA/jPRpOM4ECqQQnc4106HsI81FltO3LHM gz2vFxW3vn+i+xE3zGGlpNXyWW3j2KUu4sIxUi7XkH ACX8DCGxskcLtLWSKBYnQVpyuUpnJ3otoo8UP7AZ74T4ZGPvi4uGEcj2VKe0fEdwdQ1ZKmav2WDRSKtd farm machinery mechanic+ainUnXXuQL1HCJZJ+2EzeD1+mhJfMi4jBiPhRPHl+yyqcChYrAcTSNZ4xh07HuOByqjzo46R670IU [file] wkNepP1LAT0lv1AgIM5Kt5SqxtF0nqHoWXdhBEV7YKp5TOlfRJTCJb== ID Date Data Source [id number] 03/23/2021 09:49:00 AM EDT [facility] ([facility]) Name Value Range Interpretation Code Description Data Dayanara rce(s) Supporting Document(s) Testosterone [Mass/volume] in Serum or Plasma 660 ng/dL [id number] [facility] ([facility]) NORMAL RANGES ARE FOR ADULT FEMALES (OVE R 15 YRS) AND MALES (OVER 19 YRS). FOR PEDIATRIC RANGES PLE ASE CONSULT LITERATURE. Ammonia [Mass/volume] in Blood 20 uMOL/L [facility] ([facility]) ID Date Data Source [id number] 03/23/2021 09:48:00 AM EDT [facility] ([facility]) Name Value Range Interpretation Code Description Data Dayanara rce(s) Supporting Document(s) Thyroxine (T4) free [Mass/volume] in Serum or Plasma 0.77 ng/dL 0.76- 1.46 [facility] ([facility]) ID Date Data Source [id number] 03/23/2021 09:48:00 AM EDT [facility] ([facility]) Name Value Range Interpretation Code Description Data Dayanara rce(s) Supporting Document(s) Thyrotropin [Units/volume] in Serum or Plasma by Detec tion limit <= 0.05 mIU/L 2.39 uIU/mL 0.36-3.74 [facility] ([facility] ) ID Date Data Source [id number] 03/23/2021 09:48:00 AM EDT [facility] ([facility]) Name Value Range Interpretation Code Description Data Dayanara rce(s) Supporting Document(s) Triglyceride [Mass/volume] in Serum or Plasma 302 mg/dL 30-150 [facility] ([facility]) Cholesterol [Mass/volume] in Serum or Plasma 195 mg/dL 131-200 [facility] ([facility]) Cholesterol in HDL [Mass/volume] in Serum or Plasma 32 mg/dL 35-60 [facility] ([facility]) Cholesterol in LDL [Mass/volume] in Serum or Plasma by calcu lation 103 CALC 50-159 [facility] ([facility]) ID Date Data Source [id number] 03/23/2021 09:48:00 AM EDT [facility] ([facility]) Name Value Range Interpretation Code Description Data Dayanara rce(s) Supporting Document(s) Glucose [Mass/volume] in Serum or Plasma 100 mg/dL 74-99 [facility] ([facility]) 100-125 mg/dL PRE-DIABETES/FASTING >126 mg/dL DIABETES/FASTING Urea nitrogen [Mass/volume] in Serum or Plasma 12 mg/dL 7-18 [facility] ([facility]) Creatinine 1.2 mg/dL 0.6-1.3 [facility] Potassium [Moles/volume] in Serum or Plasma 4.7 meq/L 3.5-5.1 [facility] ([facility]) Sodium [Moles/volume] in Serum or Plasma 138 meq/L 136-145 [facility] ([facility]) Chloride [Moles/volume] in Serum or Plasma 100 meq/L 98-107 [facility] ([facility]) Carbon dioxide, total [Moles/volume] in Serum or Plasma 31 meq/L 21 -32 [facility] ([facility]) Alkaline phosphatase isoenzyme [Units/volume] in Serum or Pl asma 63 mg/dL 46-116 [facility] ([facility]) Calcium [Mass/volume] in Serum or Plasma 9.1 mg/dL 8.5-10.1 [facility] ([facility]) Aspartate aminotransferase [Enzymatic activity/volume] in Serum or Plasma 24 U/L 15-37 [facility] ([facility] ) Total Bilirubin 0.5 mg/dL 0.2-1.0 [facility] ([facility]) Alanine aminotransferase [Enzymatic activity/volume] in Seru m or Plasma 76 U/L 12-78 [facility] ([facility]) Proteinase 3 Ab [Units/volume] in Serum 7.3 g/dL 6.4-8.2 [facility] ([facility]) Albumin [Mass/volume] in Serum or Plasma 4.4 g/dL 3.4-5.0 [facility] ([facility]) Glomerular filtration rate/1.73 sq M pre dicted among non-blacks [Volume Rate/Area] in Serum or Plasma by Creatinine-based formula (MDRD) Laboratory [facility] A/G Ratio 1.52 CALC 1.00-1.90 [facility] Glomerular filtration rate/1.73 sq M pre dicted among blacks [Volume Rate/Area] in Serum or Plasma by Creatinine-based formula (MDRD) Laboratory test result [facility] ([facility]) <content>CHRONIC KIDNEY DISEASE STAGING PER NKF</content>
<content></content>
<content>STAGE I & II GFR >= 60 NORMAL TO MILDLY DECREASED</content>
<content>STAGE III GFR 30-59 MODERATELY DECREASED</content>
<content>STAGE IV GFR 15-29 SEVERELY DECREASED</content>
<content>STAGE V GFR <15 VERY LITTLE GFR LEFT</content>
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
<content></content> ID Date Data Source [id number] 03/23/2021 09:48:00 AM EDT [facility] ([facility]) Name Value Range Interpretation Code Description Data Dayanara rce(s) Supporting Document(s) Erythrocytes [#/volume] in Blood by Automated count 6.11 x10*6/UL 4.2 0-6.30 [facility] ([facility]) Leukocytes [#/volume] in Blood by Automated count 6.7 x10*3/UL 4.1-10 .9 [facility] Hematocrit [Volume Fraction] of Blood by Automated count 52.0 % 3 7.0-51.0 [facility] Hemoglobin [Mass/volume] in Blood 17.5 g/dL 12.0-18.0 [facility] ([facility]) MCH 28.7 pg 26.0-32.0 [facility] MCV 85.1 fL 80.0-97.0 [facility] MCHC 33.7 g/dL 31.0-38.0 [facility] Erythrocyte distribution width [Ratio] by Automated count 13.1 % 11.6-13.7 [facility] Platelets [#/volume] in Blood by Automated count 289 x10*3/UL 140-440 [facility] ([facility]) MPV 7.4 FL 7.8-11.0 [facility] [facility]) Mid % 6.1 % 1.7-9.3 [facility] [facility] Lymph % 21.8 % 10.0-58.5 [facility] [facility] Neut % 72.1 % 37.0-92.0 [facility] [facility] Lymph # 1.4 x10*3/UL 0.6-4.1 [facility] ([facility]) Neut # 4.8 x10*3/UL 2.0-7.8 [facility] ([facility]) Mid # 0.5 x10*3/UL 0.1-0.6 [facility] ([facility]) ID Date Data Source [id number] 11/16/2020 08:11:00 AM EST [facility] ([facility]) Name Value Range Interpretation Code Description Data Dayanara rce(s) Supporting Document(s) Glucose [Mass/volume] in Serum or Plasma 91 mg/dL 74-99 [facility] ([facility]) 100-125 mg/dL PRE-DIABETES/FASTING >126 mg/dL DIABETES/FASTING Urea nitrogen [Mass/volume] in Serum or Plasma 16 mg/dL 7-18 [facility] ([facility]) Sodium [Moles/volume] in Serum or Plasma 142 meq/L 136-145 [facility] ([facility]) Creatinine 1.2 mg/dL 0.6-1.3 [facility] ([facility]) Potassium [Moles/volume] in Serum or Plasma 4.7 meq/L 3.5-5.1 [facility] ([facility]) Carbon dioxide, total [Moles/volume] in Serum or Plasma 28 meq/L 21 -32 [facility] ([facility]) Chloride [Moles/volume] in Serum or Plasma 103 meq/L 98-107 [facility] ([facility]) Calcium [Mass/volume] in Serum or Plasma 9.4 mg/dL 8.5-10.1 [facility] ([facility]) Alkaline phosphatase isoenzyme [Units/volume] in Serum or Pl asma 52 mg/dL 46-116 [facility] ([facility]) Aspartate aminotransferase [Enzymatic activity/volume] in Serum or Plasma 23 U/L 15-37 [facility] Total Bilirubin 0.8 mg/dL 0.2-1.0 [facility] ([facility]) Alanine aminotransferase [Enzymatic activity/volume] in Seru m or Plasma 64 U/L 12-78 [facility] ([facility]) Proteinase 3 Ab [Units/volume] in Serum 7.1 g/dL 6.4-8.2 [facility] ([facility]) Albumin [Mass/volume] in Serum or Plasma 4.3 g/dL 3.4-5.0 [facility] ([facility]) Glomerular filtration rate/1.73 sq M pre dicted among non-blacks [Volume Rate/Area] in Serum or Plasma by Creatinine-based formula (MDRD) Laboratory test result [facility] A/G Ratio 1.54 CALC 1.00-1.90 [facility]) Glomerular filtration rate/1.73 sq M pre dicted among blacks [Volume Rate/Area] in Serum or Plasma by Creatinine-based formula (MDRD) Laboratory test result [facility] ([facility]) <content>CHRONIC KIDNEY DISEASE STAGING PER NKF</content>
<content></content>
<content>STAGE I & II GFR >= 60 NORMAL TO MILDLY DECREASED</content>
<content>STAGE III GFR 30-59 MODERATELY DECREASED</content>
<content>STAGE IV GFR 15-29 SEVERELY DECREASED</content>
<content>STAGE V GFR <15 VERY LITTLE GFR LEFT</content>
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
<content></content> ID Date Data Source [id number] 11/16/2020 08:11:00 AM EST [facility] Name Value Range Interpretation Code Description Data Dayanara rce(s) Supporting Document(s) Leukocytes [#/volume] in Blood by Automated count 5.2 x10*3/UL 4.1-10 .9 [facility] ([facility]) Erythrocytes [#/volume] in Blood by Automated count 5.44 x10*6/UL 4.2 0-6.30 [facility] Hemoglobin [Mass/volume] in Blood 16.8 g/dL 12.0-18.0 [facility] ([facility]) Hematocrit [Volume Fraction] of Blood by Automated count 47.3 % 3 7.0-51.0 [facility] ([facility]) MCV 86.9 fL 80.0-97.0 [facility] [facility] MCHC 35.6 g/dL 31.0-38.0 [facility] [facility]) MCH 31.0 pg 26.0-32.0 [facility] [facility] Erythrocyte distribution width [Ratio] by Automated count 12.9 % 11.6-13.7 [facility] ([facility]) Platelets [#/volume] in Blood by Automated count 248 x10*3/UL 140-440 [facility] ([facility]) MPV 7.8 FL 7.8-11.0 [facility]) Lymph % 20.8 % 10.0-58.5 [facility]) Mid % 4.9 % 1.7-9.3 [facility]) Lymph # 1.0 x10*3/UL 0.6-4.1 [facility] ([facility]) Neut % 74.3 % 37.0-92.0 [facility] Mid # 0.4 x10*3/UL 0.1-0.6 [facility] ([facility]) Neut # 3.8 x10*3/UL 2.0-7.8 [facility] ([facility]) ID Date Data Source [id number] 11/05/2020 10:05:00 AM EST [facility] ([facility]) Name Value Range Interpretation Code Description Data Dayanara rce(s) Supporting Document(s) Laboratory test finding (navigational concept) Laboratory test result [facility] ([facility]) Test: COVID-19 Nasal/Naspharynx Result: NOT DETECTED Reference Units: Not detected Note: Please consider re-collection of a new specimen, if clinically indicated. Note: The COVID-19 assay is under Emergency Use Authorization(EUA) by the U.S. Food and Drug Administration. [facility] is designated as a high complexity laboratory by the Clinical Laboratory Improvement Amendments of 1988(CLIA) and is qualified to perform this test. ASSAY INFORMATION: Real Time RT-PCR ID Date Data Source [id number] 11/05/2020 12:00:00 AM EST [facility] Name Value Range Interpretation Code Description Data Dayanara rce(s) Supporting Document(s) 2019-nCoV RNA XXX MARYA+probe-Imp [facility] This lab was ordered by [facility] and reported by [facility]. ID Date Data Source [id number] 10/24/2020 07:10:00 AM EST [facility] ([facility]) Name Value Range Interpretation Code Description Data Dayanara rce(s) Supporting Document(s) Laboratory test finding (navigational concept) Laboratory test result [facility] ([facility]) COMPREHENSIVE DRUG ANALYSIS,UR Test Result Flag Units Drug Present Norfluoxetine PRESENT Norfluoxetine is an expected metabolite of fluoxetine. Acetaminophen PRESENT Doxylamine PRESENT Dextrorphan/Levorphanol PRESENT Dextrorphan is an expected metabolite of dextromethorphan, an mfix-txk-kuhzgro or prescription cough suppressant. Levorphanol is a scheduled prescription medication. Dextrorphan cannot be distinguished from levorphanol by the method used for analysis. Test Result Flag Units Ref Range Creatinine 147 mg/dL >=20 For clinical consultation, please call . Performed at: [facility] [address] [id number] Travel Consultant: Sidra Drummond, Phone: [phone] ID Date Data Source [id number] 10/24/2020 07:10:00 AM EST [facility] ([facility]) Name Value Range Interpretation Code Description Data Dayanara rce(s) Supporting Document(s) Laboratory test finding (navigational concept) Laboratory test result [facility] ([facility]) COMPREHENSIVE DRUG ANALYSIS,UR Test Result Flag Units Drug Present Norfluoxetine PRESENT Norfluoxetine is an expected metabolite of fluoxetine. Acetaminophen PRESENT Doxylamine PRESENT Dextrorphan/Levorphanol PRESENT Dextrorphan is an expected metabolite of dextromethorphan, an kqna-meh-ianzsax or prescription cough suppressant. Levorphanol is a scheduled prescription medication. Dextrorphan cannot be distinguished from levorphanol by the method used for analysis. Test Result Flag Units Ref Range Creatinine 147 mg/dL >=20 For clinical consultation, please call . Performed at: [facility] [place] [address] Travel Consultant: Sidra Drummond, Phone: [phone] ID Date Data Source [id number] 09/04/2020 07:49:00 AM EDT [facility] ([facility]) Name Value Range Interpretation Code Description Data Dayanara rce(s) Supporting Document(s) Thyroxine (T4) free [Mass/volume] in Serum or Plasma 0.87 ng/dL 0.76- 1.46 [facility] ([facility]) ID Date Data Source [id number] 09/04/2020 07:48:00 AM EDT [facility] ([facility]) Name Value Range Interpretation Code Description Data Dayanara rce(s) Supporting Document(s) Thyrotropin [Units/volume] in Serum or Plasma by Detec tion limit <= 0.05 mIU/L 2.85 uIU/mL 0.36-3.74 [facility] ([facility] ) ID Date Data Source [id number] 09/04/2020 07:48:00 AM EDT [facility] ([facility]) Name Value Range Interpretation Code Description Data Dayanara rce(s) Supporting Document(s) Cholesterol [Mass/volume] in Serum or Plasma 198 mg/dL 131-200 [facility] ([facility]) Triglyceride [Mass/volume] in Serum or Plasma 199 mg/dL 30-150 [facility] ([facility]) Cholesterol in HDL [Mass/volume] in Serum or Plasma 39 mg/dL 35-60 [facility] ([facility]) Cholesterol in LDL [Mass/volume] in Serum or Plasma by calcu lation 119 CALC 50-159 [facility] ([facility]) ID Date Data Source [id number] 09/04/2020 07:48:00 AM EDT [facility] ([facility]) Name Value Range Interpretation Code Description Data Dayanara rce(s) Supporting Document(s) Glucose [Mass/volume] in Serum or Plasma 96 mg/dL 74-99 [facility] ([facility]) 100-125 mg/dL PRE-DIABETES/FASTING >126 mg/dL DIABETES/FASTING Creatinine 1.3 mg/dL 0.6-1.3 [facility] ([facility]) Urea nitrogen [Mass/volume] in Serum or Plasma 16 mg/dL 7-18 [facility] ([facility]) Sodium [Moles/volume] in Serum or Plasma 141 meq/L 136-145 [facility] ([facility]) Potassium [Moles/volume] in Serum or Plasma 4.2 meq/L 3.5-5.1 [facility] ([facility]) Carbon dioxide, total [Moles/volume] in Serum or Plasma 28 meq/L 21 -32 [facility] ([facility]) Calcium [Mass/volume] in Serum or Plasma 9.1 mg/dL 8.5-10.1 [facility] ([facility]) Chloride [Moles/volume] in Serum or Plasma 102 meq/L 98-107 [facility] ([facility]) Aspartate aminotransferase [Enzymatic activity/volume] in Serum or Plasma 35 U/L 15-37 [facility] ([facility] ) Alkaline phosphatase isoenzyme [Units/volume] in Serum or Pl asma 51 mg/dL 46-116 [facility] ([facility]) Total Bilirubin 0.6 mg/dL 0.2-1.0 [facility] ([facility]) Albumin [Mass/volume] in Serum or Plasma 4.2 g/dL 3.4-5.0 [facility] ([facility]) Alanine aminotransferase [Enzymatic activity/volume] in Seru m or Plasma 104 U/L 12-78 [facility] ([facility]) NOTE: RESULT VERIFIED. Proteinase 3 Ab [Units/volume] in Serum 7.0 g/dL 6.4-8.2 [facility] A/G Ratio 1.50 CALC 1.00-1.90 [facility] ([facility]) Glomerular filtration rate/1.73 sq M pre dicted among non-blacks [Volume Rate/Area] in Serum or Plasma by Creatinine-based formula (MDRD) 58 mL/min [facility] Glomerular filtration rate/1.73 sq M pre dicted among blacks [Volume Rate/Area] in Serum or Plasma by Creatinine-based formula (MDRD) Laboratory test result [facility] ([facility]) <content>CHRONIC KIDNEY DISEASE STAGING PER NKF</content>
<content></content>
<content>STAGE I & II GFR >= 60 NORMAL TO MILDLY DECREASED</content>
<content>STAGE III GFR 30-59 MODERATELY DECREASED</content>
<content>STAGE IV GFR 15-29 SEVERELY DECREASED</content>
<content>STAGE V GFR <15 VERY LITTLE GFR LEFT</content>
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
<content></content> ID Date Data Source [id number] 09/04/2020 07:48:00 AM EDT [facility] Name Value Range Interpretation Code Description Data Dayanara rce(s) Supporting Document(s) Hemoglobin [Mass/volume] in Blood 17.5 g/dL 12.0-18.0 [facility] Leukocytes [#/volume] in Blood by Automated count 4.8 x10*3/UL 4.1-10 .9 [facility] Erythrocytes [#/volume] in Blood by Automated count 5.87 x10*6/UL 4.2 0-6.30 [facility] Hematocrit [Volume Fraction] of Blood by Automated count 49.6 % 3 7.0-51.0 [facility] [facility] MCV 84.5 fL 80.0-97.0 [facility] ([facility]) MCH 29.8 pg 26.0-32.0 [facility] [facility]) MCHC 35.3 g/dL 31.0-38.0 [facility] ([place] [facility]) Platelets [#/volume] in Blood by Automated count 243 x10*3/UL 140-440 [facility] ([facility]) MPV 7.6 FL 7.8-11.0 [facility] [facility]) Erythrocyte distribution width [Ratio] by Automated count 12.4 % 11.6-13.7 [facility] ([facility]) Neut % 67.3 % 37.0-92.0 [facility] [facility]) Mid % 6.4 % 1.7-9.3 [facility] [facility]) Lymph % 26.3 % 10.0-58.5 [facility] [facility]) Lymph # 1.2 x10*3/UL 0.6-4.1 [facility] ([facility]) Neut # 3.2 x10*3/UL 2.0-7.8 [facility] ([facility]) Mid # 0.4 x10*3/UL 0.1-0.6 [facility] ([facility]) Procedure Social History No Information Vital Signs ID Date Data Source UNK Name Value Range Interpretation Code Description Data Source(s) Systolic blood pressure 122 mm[Hg] 122 [facility]Hg[facility] Diastolic blood pressure 80 mm[Hg] 80 mm[Hg] [facility] ([facility]) Heart rate 64 /min 64 /min [facility] ([facility]) Body height 66 [in_i] 66 [in_i] [facility] ([facility]) 5'6" Body mass index (BMI) [Ratio] 30.7 kg/m2 30.7 k g/m2 [facility] ([facility]) Body weight 190.00 [lb_av] 190.00 [lb_av] [facility] ([facility]) Systolic blood pressure 120 mm[Hg] 120 mm[Hg] [facility] Body mass index (BMI) [Ratio] 31.5 kg/m2 31.5 k g/m2 [facility] ([facility]) Diastolic blood pressure 70 mm[Hg] 70 mm[Hg] [facility] ([facility]) Heart rate 68 /min 68 /min [facility] ([facility]) Body height 66 [in_i] 66 [in_i] [facility] ([facility]) 5'6" Body weight 195.00 [lb_av] 195.00 [lb_av] [facility] ([facility]) Systolic blood pressure 118 mm[Hg] 118 mm[Hg] M [facility] ([facility]) Diastolic blood pressure 76 mm[Hg] 76 mm[Hg] [facility] ([facility]) Heart rate 72 /min 72 /min [facility] Body height 66 [in_i] 66 [in_i] [facility] ([facility]) 5'6" Body weight 184.00 [lb_av] 184.00 [lb_av] [facility] ([facility]) Body mass index (BMI) [Ratio] 29.7 kg/m2 29.7 k g/m2 [facility] ([facility]) Body weight 182.00 [lb_av] 182.00 [lb_av] [facility] ([facility]) Systolic blood pressure 122 mm[Hg] 122 mm[Hg] [facility] Diastolic blood pressure 90 mm[Hg] 90 mm[Hg] [facility] Heart rate 92 /min 92 /min [facility] ([facility]) Body height 66 [in_i] 66 [in_i] [facility] ([facility]) 5'6" Body mass index (BMI) [Ratio] 29.4 kg/m2 29.4 k g/m2 [facility]
[2021-10-20] MEDS ORDERED: holter monitor (16:40)
[2021-10-20 17:15] VITALS: BP 145/92
--- NOTE | 2021-10-20 20:39 | ECGEPIP ---
[facility] - ED Test Date: 2021-10-20 Pat Name: JODIE LANGFORD Department: Room: - Gender: Male [employer] Attendant: RYAN : 1970 Requested By: Darlene Rosario Order Number: [id number] Reading MD: Darlene Rosario Measurements Intervals [place] Rate: 91 P: 58 AK: 146 QRS: 14 QRSD: 88 T: 11 QT: 344 QTc: 423 Interpretive Statements Normal sinus rhythm increased rate 01/31/19 Electronically Signed on 10-20-2021 20:39:35 EST by Darlene Rosario
== END 2021-10-20 17:28 | disposition home or self-care (01) ==
LOC: M ED 12:25
DX: R00.2 Palpitations (principal); G47.33 Obstructive sleep apnea (adult) (pediatric); Z99.89 Dependence on other enabling machines and devices

== ENCOUNTER → 2021-10-27 | Outpatient (CLI) | payer BC ==
[~2021-10-27] MED LIST changes: +CLON0.5T2; +METH36TA5; +MIRT1TAB; +PARO30TA4; +holter monitor
--- NOTE | 2021-10-28 13:38 | HOLTMON ---
[facility] Test Date: 2021-10-27 Pat Name: JODIE LANGFORD Department: Room: - Gender: Male Director Transportation: TRACY : 1970 Requested By: Darlene Rosario Order Number: [id number] Reading MD: Samuel Ray Interpretive Statements Predominantly sinus rhythm, with heart rates from 53-135 bpm; average heart rate 76 bpm. No atrial fibrillation detected. No supraventricular ectopy. 2 isolated PVCs. No episodes of SVT, wide complex tachycardia, second-degree or third-degree AV block or sinus arrest. Normal heart rhythm recording. Dizziness while cooking dinner 10/27/2021 at 5:19 PM correlated with sinus tachycardia 110 bpm. Diary event 10/27/2021 at 10:20 AM Without symptoms recorded correlated with sinus tachycardia. Electronically Signed on 10-28-2021 13:37:48 EST by Samuel Ray
== END ==
LOC: M EKG 10:06
PROVIDERS: ATTEND Emergency Medicine
DX: R00.2 Palpitations (principal)

== ENCOUNTER → 2022-08-30 | Outpatient (REF) | payer BC ==
[2022-08-30 18:01] LABS: CHLORIDE,RANDOM URINE 97 MEQ/L; POTASSIUM RANDOM URINE 63.7 MEQ/L; SODIUM,RANDOM URINE 55 MEQ/L
[2022-08-30 18:07] LABS: APPEARANCE, URINE MANUAL CLEAR (CLEAR); COLOR, URINE MANUAL YELLOW (YELLOW)
[2022-08-30 18:09] LABS: BILIRUBIN, URINE MANUAL NEGATIVE (NEGATIVE); BLOOD URINE MANUAL NEGATIVE (NEGATIVE); GLUCOSE, URINE (UA) MANUAL NEGATIVE (NEGATIVE); KETONE, URINE MANUAL NEGATIVE (NEGATIVE); LEUKOCYTE ESTERASE, URINE MAN NEGATIVE (NEGATIVE); NITRITE, URINE MANUAL NEGATIVE (NEGATIVE); PH,URINE MAN 7.5 UNITS (5.0 - 7.0); PROTEIN, URINE MANUAL NEGATIVE (NEGATIVE); UROBILINOGEN, URINE MANUAL NORMAL (NORMAL)
== END ==
LOC: M LAB REF 16:04
PROVIDERS: ATTEND Family Medicine
DX: R53.83 Other fatigue (principal); R39.13 Splitting of urinary stream

== ENCOUNTER → 2023-12-16 | Outpatient (REF) | payer BC ==
[~2023-12-16] MED LIST changes: -PAXI20TA29 PO; +PAXI20TA30 PO
[2023-12-16 14:14] LABS: FERRITIN 8.3 NG/ML (10.5-307.3)
[2023-12-16 14:48] LABS: HEPATITIS B CORE ANTIBODY IGM NEGATIVE (NEGATIVE); HEPATITIS C VIRUS ABY INDEX < 0.02 INDEX (<0.8)
== END ==
LOC: M LAB REF 12:41
PROVIDERS: ATTEND Family Medicine
DX: R74.8 Abnormal levels of other serum enzymes (principal)

== ENCOUNTER → 2023-12-31 | Outpatient (CLI) | payer BC | LOC: M RAD 08:03 | PROVIDERS: ATTEND Family Medicine | DX: R74.8 Abnormal levels of other serum enzymes (principal); K76.0 Fatty (change of) liver, not elsewhere classified; Q60.0 Renal agenesis, unilateral ==

== ENCOUNTER → 2024-07-13 | Outpatient (REF) | payer MEDICARE | LOC: M SFHCPLAZ 18:51 | PROVIDERS: ATTEND Student in an Organized Health Care Education/Training Program | DX: Z76.89 Persons encountering health services in other specified circumstances (principal); G93.32 Myalgic encephalomyelitis/chronic fatigue syndrome; Z13.220 Encounter for screening for lipoid disorders; R79.89 Other specified abnormal findings of blood chemistry ==

== ENCOUNTER → 2024-07-26 | Outpatient (CLI) | payer BC ==
[2024-07-26 10:23] LABS: EOS # 0.1 10^3/uL (0.0-0.5); HEMATOCRIT 47.9 % (42.0-52.0); LYMPH # 1.4 10^3/uL (1.5-5.0); LYMPH % 34.9 % (24.0-44.0); MEAN CORPUSCULAR HEMOGLOBIN 31.1 pg (27.0-33.0); MEAN CORPUSCULAR HGB CONC 35.5 g/dl (32.0-36.5); MEAN CORPUSCULAR VOLUME 87.7 fl (80.0-96.0); MONO # 0.3 10^3/uL (0.0-0.8); MONO % 7.2 % (2.0-8.0); NEUTROPHILS # 2.2 10^3/uL (1.5-8.5); NEUTROPHILS % 54.4 % (36.0-66.0); PLATELET COUNT, AUTOMATED 239 10^3/uL (150-450); RED BLOOD COUNT 5.46 10^6/uL (4.30-6.10)
[2024-07-26 10:30] LABS: ERYTHROCYTE SEDIMENTATION RATE < 1 mm/hr (0-20)
[2024-07-26 10:46] LABS: URIC ACID 7.2 MG/DL (3.7-9.2)
[2024-07-26 10:47] LABS: C REACTIVE PROTEIN QUANTITATIV < 0.40 MG/DL (<1.0)
[2024-07-26 10:48] LABS: IRON (FE) 70 UG/DL (65-175)
[2024-07-26 10:49] LABS: ALBUMIN 4.2 G/DL (3.2-5.2); ALKALINE PHOSPHATASE 67 U/L (46-116); ALT/SGPT 91 U/L (7.0-40); AST/SGOT 29 U/L (<34); BILIRUBIN,TOTAL 0.9 MG/DL (0.3-1.2); BLOOD UREA NITROGEN 11 MG/DL (9-23); CALCIUM LEVEL 9.7 MG/DL (8.5-10.1); CARBON DIOXIDE LEVEL 28 MMOL/L (20-31); CHLORIDE LEVEL 104 MMOL/L (98-107); CHOLESTEROL LEVEL 195 MG/DL (<200); CHOLESTEROL RISK RATIO 6.23 (<5); CREATININE FOR GFR 1.04 MG/DL (0.70-1.30); FERRITIN 23.3 NG/ML (10.5-307.3); FREE T4 0.99 NG/DL (0.89-1.76); GLOMERULAR FILTRATION RATE > 60.0 (>56); GLUCOSE, FASTING 89 MG/DL (60-100); HDL CHOLESTEROL 31.3 MG/DL (>40); LDL CHOLESTEROL 121.1 MG/DL (<100); NON-HDL-C 163.7 MG/DL; POTASSIUM SERUM 4.3 MMOL/L (3.5-5.1); RHEUMATOID FACTOR QUANT < 3.5 IU/ML (<14); SODIUM LEVEL 137 MMOL/L (136-145); TESTOSTERONE 693 NG/DL (241-827); THYROID STIMULATING HORMONE 2.084 uIU/ML (0.55-4.78); TOTAL IRON BINDING CAPACITY 412 UG/DL (250-425); TOTAL PROTEIN 6.7 G/DL (5.7-8.2); TRIGLYCERIDES LEVEL 213 MG/DL (<150)
[2024-07-26 10:56] LABS: MONO REFLEX EBV VCA IgM NEGATIVE (NEGATIVE)
[2024-07-26 11:19] LABS: HIV 1&2 SCREEN NEGATIVE (NEGATIVE)
[2024-07-27 11:07] LABS: DEHYDROEPIANDROSTERONE SULFATE 399 mcg/dL (32-279)
[2024-07-27 14:51] LABS: ANA SCREEN, IFA NEGATIVE (NEGATIVE)
[2024-07-27 23:06] LABS: CYCLIC CITRULLINATED PEPTIDE < 16 UNITS (<20)
== END ==
LOC: M PLALAB 08:36
PROVIDERS: ATTEND Student in an Organized Health Care Education/Training Program
DX: Z76.89 Persons encountering health services in other specified circumstances (principal)

== ENCOUNTER → 2025-04-10 | Outpatient (CLI) | payer BC ==
[~2025-04-10] MED LIST changes: +METH36TA13; -METH36TA5
[2025-04-10 10:34] LABS: BASO # 0.1 10^3/uL (0.0-0.2); BASO % 1.1 % (0.0-1.0); EOS # 0.1 10^3/uL (0.0-0.5); EOS % 2.8 % (0.0-3.0); HEMATOCRIT 46.5 % (42.0-52.0); LYMPH # 1.4 10^3/uL (1.5-5.0); LYMPH % 31.3 % (24.0-44.0); MEAN CORPUSCULAR HEMOGLOBIN 26.3 pg (27.0-33.0); MEAN CORPUSCULAR HGB CONC 32.3 g/dl (32.0-36.5); MEAN CORPUSCULAR VOLUME 81.6 fl (80.0-96.0); MONO # 0.4 10^3/uL (0.0-0.8); NEUTROPHILS # 2.4 10^3/uL (1.5-8.5); NEUTROPHILS % 55.6 % (36.0-66.0); PLATELET COUNT, AUTOMATED 264 10^3/uL (150-450); WHITE BLOOD COUNT 4.4 10^3/uL (4.0-10.0)
[2025-04-10 10:58] LABS: PSA SCREENING 0.64 NG/ML (< 4.00)
[2025-04-10 11:00] LABS: BILIRUBIN,TOTAL 0.8 MG/DL (0.3-1.2); CHOLESTEROL RISK RATIO 5.47 (<5); CREATININE FOR GFR 1.12 MG/DL (0.70-1.30); GLOMERULAR FILTRATION RATE 78.1 (>56); HDL CHOLESTEROL 28.5 MG/DL (>40); LDL CHOLESTEROL 93.5 MG/DL (<100); NON-HDL-C 127.5 MG/DL; POTASSIUM SERUM 4.5 MMOL/L (3.5-5.1); TOTAL PROTEIN 6.6 G/DL (5.7-8.2)
[2025-04-10 11:02] LABS: FREE T4 0.87 NG/DL (0.89-1.76)
[2025-04-10 11:03] LABS: THYROID STIMULATING HORMONE 1.14 uIU/ML (0.55-4.78)
== END ==
LOC: M LAB 08:43
PROVIDERS: ATTEND Student in an Organized Health Care Education/Training Program
DX: Z00.00 Encounter for general adult medical examination without abnormal findings (principal); Z13.1 Encounter for screening for diabetes mellitus; Z13.220 Encounter for screening for lipoid disorders; G47.9 Sleep disorder, unspecified; Z12.5 Encounter for screening for malignant neoplasm of prostate; F41.8 Other specified anxiety disorders
CPT/HCPCS: 36415; 80053; 80061; 82652; 83036; 84439; 84443; 85025; G0103

== ENCOUNTER → 2025-07-01 | Outpatient (CLI) | payer BC ==
[2025-07-01 07:55] LABS: FREE T4 0.94 NG/DL (0.89-1.76)
== END ==
LOC: M LAB 06:37
PROVIDERS: ATTEND Student in an Organized Health Care Education/Training Program
DX: R79.89 Other specified abnormal findings of blood chemistry (principal)

== ENCOUNTER → 2025-08-08 | Outpatient (CLI) | payer BC ==
[~2025-08-08] MED LIST changes: +E-Z-GAS II EFFERVESCENT PACKET (SODIUM BICARB./CITRIC ACID/SIMETHICONE) As Ordered ONE; +E-Z-HD 98% w/w 340 GM SUSP BTL As Ordered ONE; +E-Z-PAQUE 96% w/w SUSP 176 GM BTL As Ordered ONE
== END ==
LOC: M RAD 08:51
PROVIDERS: ATTEND Student in an Organized Health Care Education/Training Program
DX: R13.12 Dysphagia, oropharyngeal phase (principal)

== ENCOUNTER → 2025-09-19 | Outpatient (CLI) | payer BC ==
[~2025-09-19] MED LIST changes: -E-Z-GAS II EFFERVESCENT PACKET (SODIUM BICARB./CITRIC ACID/SIMETHICONE) As Ordered ONE; -E-Z-HD 98% w/w 340 GM SUSP BTL As Ordered ONE; -E-Z-PAQUE 96% w/w SUSP 176 GM BTL As Ordered ONE
[2025-09-19 07:40] LABS: BASO # 0.1 10^3/uL (0.0-0.2); BASO % 0.9 % (0.0-1.0); EOS # 0.1 10^3/uL (0.0-0.5); EOS % 2.4 % (0.0-3.0); LYMPH # 1.2 10^3/uL (1.5-5.0); LYMPH % 23.4 % (24.0-44.0); MONO # 0.4 10^3/uL (0.0-0.8); MONO % 7.2 % (2.0-8.0); NEUTROPHILS # 3.5 10^3/uL (1.5-8.5); NEUTROPHILS % 65.7 % (36.0-66.0); PLATELET COUNT, AUTOMATED 274 10^3/uL (150-450)
[2025-09-19 08:12] LABS: ALT/SGPT 54 U/L (7.0-40); AST/SGOT 22 U/L (<34); CALCIUM LEVEL 8.9 MG/DL (8.5-10.1); CARBON DIOXIDE LEVEL 28 MMOL/L (20-31); CHLORIDE LEVEL 104 MMOL/L (98-107); CHOLESTEROL LEVEL 164 MG/DL (<200); CHOLESTEROL RISK RATIO 5.83 (<5); CREATININE FOR GFR 1.08 MG/DL (0.70-1.30); GLOMERULAR FILTRATION RATE 81.0 (>56); LDL CHOLESTEROL 73.7 MG/DL (<100); NON-HDL-C 135.9 MG/DL; POTASSIUM SERUM 4.6 MMOL/L (3.5-5.1); SODIUM LEVEL 141 MMOL/L (136-145); TRIGLYCERIDES LEVEL 311 MG/DL (<150)
[2025-09-19 08:13] LABS: ESTRADIOL 28.8 PG/ML (<39.8); FREE T4 0.81 NG/DL (0.89-1.76); LUTEINIZING HORMONE < 0.1 mIU/ML (1.5-9.3)
[2025-09-19 08:14] LABS: PROLACTIN 11.97 NG/ML (2.1-17.7)
[2025-09-19 08:15] LABS: TESTOSTERONE 479 NG/DL (241-827)
[2025-09-19 08:17] LABS: T UPTAKE 32.1 % (22.5-37.0)
[2025-09-20 06:27] LABS: SEX HORMONE BINDING GLOBULIN 11.0 nmol/L (10-50)
[2025-09-20 16:50] LABS: PSA % FREE 25.0 % (calc) (>25); PSA FREE 0.2 ng/mL; PSA TOTAL 0.8 ng/mL (< OR = 4.0)
== END ==
LOC: M LAB 06:44
PROVIDERS: ATTEND Physician Assistant
DX: E29.1 Testicular hypofunction (principal); D75.1 Secondary polycythemia

== ENCOUNTER → 2025-11-03 | Outpatient (CLI) | payer BC ==
[2025-11-03 07:04] LABS: BASO # 0.1 10^3/uL (0.0-0.2); BASO % 0.8 % (0.0-1.0); EOS # 0.1 10^3/uL (0.0-0.5); EOS % 2.0 % (0.0-3.0); LYMPH # 1.6 10^3/uL (1.5-5.0); LYMPH % 23.8 % (24.0-44.0); MONO # 0.4 10^3/uL (0.0-0.8); MONO % 6.3 % (2.0-8.0); NEUTROPHILS # 4.4 10^3/uL (1.5-8.5); NEUTROPHILS % 66.9 % (36.0-66.0); PLATELET COUNT, AUTOMATED 303 10^3/uL (150-450)
== END ==
LOC: M LAB 06:30
PROVIDERS: ATTEND Internal Medicine Hematology & Oncology
DX: R71.8 Other abnormality of red blood cells (principal); D75.1 Secondary polycythemia

== ENCOUNTER → 2025-11-16 | Outpatient (REF) | payer MEDICARE | LOC: M SFHCPLAZ 07:29 | PROVIDERS: ATTEND Family Medicine | DX: Z53.9 Procedure and treatment not carried out, unspecified reason (principal) ==

== ENCOUNTER → 2025-11-22 | Outpatient (CLI) | payer BC ==
[2025-11-29 01:03] LABS: ALPHA 2-MACROGLOBULINS,QN 105 mg/dL (106-279); ALT (SGPT) P5P 24 U/L (9-46); APOLIPOPROTEIN A-1 124 mg/dL (94-176); FIBROSIS SCORE 0.10; FIBROSIS STAGE NO FIBROSIS (F0); GGT 32 U/L (3-85); HAPTOGLOBIN 115 mg/dL (43-212); NECROINFLAM ACT GRADE NO ACTIVITY (A0); NECROINFLAM ACT SCORE 0.08
== END ==
LOC: M LAB 08:47
PROVIDERS: ATTEND Physician Assistant Medical
DX: K76.0 Fatty (change of) liver, not elsewhere classified (principal); R09.A2 Foreign body sensation, throat

== ENCOUNTER → 2025-11-22 | Outpatient (CLI) | payer BC ==
[2025-11-22 10:34] LABS: FREE T4 0.98 NG/DL (0.89-1.76)
== END ==
LOC: M LAB 08:44
PROVIDERS: ATTEND Family Medicine
DX: E03.9 Hypothyroidism, unspecified (principal); K76.0 Fatty (change of) liver, not elsewhere classified; R09.A2 Foreign body sensation, throat